=== PATIENT | female | born 1965 | race Caucasian/White ===

== ENCOUNTER → 2016-06-06 | Outpatient (CLI) | payer MEDICARE, MEDICAID | LOC: RAD 12:26 | PROVIDERS: ATTEND Physician Assistant | DX: M47.812 Spondylosis without myelopathy or radiculopathy, cervical region (principal) | CPT/HCPCS: 72125 ==

== ENCOUNTER 2017-03-27 09:06 | Emergency (ER) | payer MEDICARE, MEDICAID ==
[2017-03-27] MEDS ORDERED: MORPHINE SULFATE 10 MG/ML INJ IV ONE (10:45)
[2017-03-27] MEDS ORDERED: ONDANSETRON HCL INJ/PF 4 MG/2 ML SDV IV ONE (10:45)
--- NOTE | 2017-03-27 10:47 | ER Document Report ---
ED Medical Screen (RME) - General Chief Complaint: Headache >24 hrs old Stated Complaint: HEADACHE Time Seen by Provider: 03/27/17 10:45 Mode of Arrival: Ambulatory Notes: Patient complains of posterior headache and "trouble with my thought process". She states she has a history of Chiari malformation with decompression surgery 3 years ago. I did speak with radiology who requested an MRI be performed. TRAVEL OUTSIDE OF THE [place] IN LAST 30 DAYS: No - Related Data Allergies/Adverse Reactions: oxycodone [Oxycodone] Adverse Reaction (Mild, Verified 03/27/17 10:38) Past Medical History - Social History Frequency of alcohol use: None Drug Abuse: None - Past Medical History Cardiac Medical History: Reports: Hx Hypercholesterolemia, Hx Hypertension Neurological Medical History: Reports: Hx Seizures Renal/ Medical History: Denies: Hx Peritoneal Dialysis Psychiatric Medical History: Reports: Hx Depression Past Surgical History: Reports: Hx Hysterectomy, Hx Neurologic Surgery - Decompression of Chiari 1 malformation, Hx Orthopedic Surgery - right arthroscopy - Immunizations Hx Diphtheria, Pertussis, Tetanus Vaccination: No Physical Exam - Vital signs Vitals: Temp Pulse Resp BP Pulse Ox 97.5 F 70 17 168/100 H 99 03/27/17 09:12 03/27/17 09:12 03/27/17 09:12 03/27/17 09:12 03/27/17 09:12 Course - Vital Signs Vital signs: Temp Pulse Resp BP Pulse Ox 97.5 F 70 17 168/100 H 99 03/27/17 09:12 03/27/17 09:12 03/27/17 09:12 03/27/17 09:12 03/27/17 09:12
[2017-03-27 11:53] LABS: ABSOLUTE EOSINOPHILS # (AUTO) 0.1 10^3/uL (0.0-0.6); ABSOLUTE LYMPHOCYTES (AUTO) 1.4 10^3/uL (0.5-4.7); ABSOLUTE MONOCYTES (AUTO) 0.4 10^3/uL (0.1-1.4); ABSOLUTE NEUT (AUTO) 4.9 10^3/uL (1.7-8.2); BASOPHILS % (AUTO) 0.6 % (0-2); EOSINOPHILS % (AUTO) 1.1 % (0-6); HEMATOCRIT 44.3 % (36.0-47.0); HEMOGLOBIN 15.1 g/dL (12.0-15.5); LYMPHOCYTES % (AUTO) 20.3 % (13-45); MEAN CORPUSCULAR HEMOGLOBIN 32.4 pg (27.0-33.4); MEAN CORPUSCULAR HGB CONC 34.1 g/dL (32.0-36.0); MEAN CORPUSCULAR VOLUME 95 fl (80-97); MONOCYTES % (AUTO) 5.6 % (3-13); PLATELET COUNT 212 10^3/uL (150-450); RED BLOOD COUNT 4.67 10^6/uL (3.72-5.28); RED CELL DISTRIBUTION WIDTH 14.2 % (11.5-14.0); SEGMENTED NEUTROPHILS % (AUTO) 72.4 % (42-78); TOTAL CELLS COUNTED % (AUTO) 100 %; WHITE BLOOD COUNT 6.8 10^3/uL (4.0-10.5)
[2017-03-27 12:00] LABS: APPEARANCE,URINE CLEAR; BILIRUBIN,URINE NEGATIVE (NEGATIVE); COLOR,URINE YELLOW; GLUCOSE, URINE NEGATIVE (NEGATIVE); KETONES,URINE NEGATIVE (NEGATIVE); LEUKOCYTE ESTERASE,URINE NEGATIVE (NEGATIVE); NITRITE,URINE NEGATIVE (NEGATIVE); PROTEIN,URINE NEGATIVE (NEGATIVE); URINE SPECIFIC GRAVITY 1.021
[2017-03-27 12:05] LABS: ALANINE AMINOTRANSFERASE 27 U/L (9-52); ALBUMIN 4.6 g/dL (3.5-5.0); ALKALINE PHOSPHATASE 56 U/L (38-126); ANION GAP 8 (5-19); ASPARTATE AMINO TRANSFERASE 15 U/L (14-36); BILIRUBIN,DIRECT 0.2 mg/dL (0.0-0.4); BILIRUBIN,TOTAL 0.6 mg/dL (0.2-1.3); BLOOD UREA NITROGEN 14 mg/dL (7-20); CALCIUM 9.7 mg/dL (8.4-10.2); CARBON DIOXIDE 29 mmol/L (22-30); CHLORIDE 104 mmol/L (98-107); GLUCOSE 90 mg/dL (75-110); POTASSIUM 3.9 mmol/L (3.6-5.0); SODIUM 141.2 mmol/L (137-145); TOTAL PROTEIN 7.1 g/dL (6.3-8.2)
--- NOTE | 2017-03-27 14:31 | ER Document Report ---
ED Headache - General Chief Complaint: Headache >24 hrs old Stated Complaint: HEADACHE Time Seen by Provider: 03/27/17 10:45 Mode of Arrival: Ambulatory Notes: Patient states that she has a history of a Chiari malformation. Status post craniotomy approximately 5 years ago. Has been having increasing headache over the last 3 days. Located at the occiput. Denies any fever, chills, sweats. Denies any neurological symptoms. TRAVEL OUTSIDE OF THE [place] IN LAST 30 DAYS: No - HPI Patient complains to provider of: Headache, "Migraine" - Related Data Allergies/Adverse Reactions: oxycodone [Oxycodone] Adverse Reaction (Mild, Verified 03/27/17 10:38) Past Medical History - General Information source: Patient - Social History Smoking Status: Current Some Day Smoker Frequency of alcohol use: None Drug Abuse: None Family History: Reviewed & Not Pertinent - No thromboembolic disorders Patient has suicidal ideation: No Patient has homicidal ideation: No - Past Medical History Cardiac Medical History: Reports: Hx Hypercholesterolemia, Hx Hypertension Neurological Medical History: Reports: Hx Seizures Renal/ Medical History: Denies: Hx Peritoneal Dialysis Psychiatric Medical History: Reports: Hx Depression Past Surgical History: Reports: Hx Hysterectomy, Hx Neurologic Surgery - Decompression of Chiari 1 malformation, Hx Orthopedic Surgery - right arthroscopy - Immunizations Hx Diphtheria, Pertussis, Tetanus Vaccination: No Review of Systems - Review of Systems Constitutional: denies: Chills, Diaphoresis, Fever, Malaise, Weakness EENT: denies: Blurred vision, Double vision, Ear pain, Nose congestion, Nose discharge Cardiovascular: denies: Palpitations, Heart racing, Orthopnea, Dyspnea, Syncope Respiratory: denies: Cough, Hurts to breathe, Hemoptysis, Short of breath Gastrointestinal: denies: Abdominal pain, Diarrhea, Nausea, Vomiting Genitourinary: denies: Burning, Dysuria, Discharge, Hematuria Musculoskeletal: denies: Gout, Joint pain, Joint swelling, Muscle pain, Muscle stiffness, Neck pain Skin: denies: Change in color, Change in hair/nails, Dryness, Lesions, Lumps, Rash Hematologic/Lymphatic: denies: Anemia, Blood clots, Easy bleeding, Easy bruising Neurological/Psychological: Headaches. denies: Dementia, Depression, Anxiety, Weakness, Gait changes Physical Exam - Vital signs Vitals: Temp Pulse Resp BP Pulse Ox 97.5 F 70 17 168/100 H 99 03/27/17 09:12 03/27/17 09:12 03/27/17 09:12 03/27/17 09:12 03/27/17 09:12 Interpretation: Normal - General General appearance: Appears well, Alert - HEENT Head: Normocephalic, Atraumatic Eyes: Normal Pupils: PERRL - Respiratory Respiratory status: No respiratory distress Chest status: Nontender Breath sounds: Normal Chest palpation: Normal - Cardiovascular Rhythm: Regular Heart sounds: Normal auscultation Murmur: No - Abdominal Inspection: Normal Distension: No distension Bowel sounds: Normal Tenderness: Nontender Organomegaly: No organomegaly - Back Back: Normal, Nontender - Extremities General upper extremity: Normal inspection, Nontender, Normal color, Normal ROM , Normal temperature General lower extremity: Normal inspection, Nontender, Normal color, Normal ROM , Normal temperature, Normal weight bearing. No: Maco's sign - Neurological Neuro grossly intact: Yes Cognition: Normal Orientation: AAOx4 [place] Coma Scale Eye Opening: Spontaneous Trisha Coma Scale Verbal: Oriented Trisha Coma Scale Motor: Obeys Commands [place] Coma Scale Total: 15 Speech: Normal Motor strength normal: LUE, RUE, LLE, RLE Sensory: Normal - Psychological Associated symptoms: Normal affect, Normal mood - Skin Skin Temperature: Warm Skin Moisture: Dry Skin Color: Normal Course - Re-evaluation Re-evalutation: 03/27/17 16:26 Well-appearing female no acute distress. MRI unremarkable. N We will give her standard migraine treatment at this time. Patient is comfortable with this plan. Will DC at this time. - Vital Signs Vital signs: Temp Pulse Resp BP Pulse Ox 97.7 F 74 20 160/71 H 99 03/27/17 15:15 03/27/17 15:15 03/27/17 15:15 03/27/17 15:15 03/27/17 15:15 - Laboratory Result Diagrams: 03/27/17 11:28 03/27/17 11:28 Laboratory results interpreted by me: 03/27/17 03/27/17 11:05 11:28 RDW 14.2 H Urine Blood SMALL H Urine Urobilinogen 2.0 H Discharge - Discharge Clinical Impression: Chronic headaches Qualifiers: Headache type: unspecified Intractability: not intractable Qualified Code(s): R51 - Headache Disposition: HOME, SELF-CARE Instructions: Headache ([facility])
--- NOTE | 2017-03-27 15:40 | RADIOLOGY REPORT (SQ) ---
EXAM DESCRIPTION: MRI HEAD COMBO COMPLETED DATE/TIME: 03/27/2017 3:04 pm REASON FOR STUDY: hx chiari with surg COMPARISON: CT cervical spine 06/06/2016 MRI cervical spine 08/15/2015 MRI brain 05/26/2015, 08/03/2014 TECHNIQUE: Multiplanar imaging includes noncontrasted T1, T2, FLAIR, diffusion with ADC map and post gadolinium contrast T1 sequences. Images stored on PACS. CONTRAST TYPE AND DOSE: 20 mL Multihance. RENAL FUNCTION: Estimated GFR greater than 60 LIMITATIONS: None. FINDINGS: ANATOMY: Patient is post decompression of the posterior aspect foramen magnum for Chiari 1 malformation. There is ample CSF space around the cerebellar tonsils and medulla without evidence o f mass effect. A titanium plate is seen along the posterior aspect of the foramen magnum. No abnorm al masses or enhancement in the operative area. There is incidental finding of of empty sella, an anatomic variant, similar compared to 08/03/2014. CSF SPACES: Normal in size and contour. No hemorrhage. No hydrocephalus. CEREBRUM: Sulci and gyri normal in size and contour. Normal white matter signal on FLAIR imaging. No evidence of hemorrhage, mass, or extraaxial fluid collection. No abnormal enhancement post contrast. POSTERIOR FOSSA: No signal alteration. No hemorrhage. No edema, masses, or mass effect. Internal yodit tory canals, cerebellopontine angles, mastoids normal. No enhancing lesions. No abnormal enhancement post contrast. DIFFUSION IMAGING: Negative for acute or subacute infarction. ORBITS: No masses. Globes normal. PARANASAL SINUSES: No fluid levels. Mucosa normal. OTHER: No other significant finding. IMPRESSION: POST CHIARI 1 MALFORMATION DECOMPRESSION IN THE POSTERIOR FOSSA. OTHERWISE, NORMAL MRI OF THE BRAIN WITHOUT AND WITH INTRAVENOUS GADOLINIUM CONTRAST. EVIDENCE OF ACUTE STROKE: NO. TECHNICAL DOCUMENTATION: JOB ID: [id number] [employer]- All Rights Reserved
[2017-03-27] MEDS ORDERED: KETOROLAC TROMETHAMINE INJ/PF 30 MG/1 ML SDV IV ONE (16:23)
[2017-03-27] MEDS ORDERED: DIPHENHYDRAMINE HCL 50 MG/ML VIAL IV ONE (16:23)
[2017-03-27] MEDS ORDERED: PROCHLORPERAZINE EDISYLATE INJ 10 MG/2 ML VIAL IV ONE (16:24)
[2017-03-27 16:48] VITALS: BP 153/92
== END 2017-03-27 16:49 | disposition home or self-care (01) ==
LOC: ER 09:06
DX: R51 Headache (principal); G93.5 Compression of brain; I10 Essential (primary) hypertension; Z98.890 Other specified postprocedural states
CPT/HCPCS: 99284; 96374; 96375; 36415; 85025; 80053; 81001; 70553; J2270; J2405

== ENCOUNTER 2017-04-19 07:52 | Emergency (ER) | payer MEDICARE, MEDICAID ==
[2017-04-19] MEDS ORDERED: NORMAL SALINE 1000 ML 1,000 ML IV ONE (08:36)
[2017-04-19] MEDS ORDERED: HYDROMORPHONE HCL INJ/PF 2 MG/ML AMPULE IV ONE (08:36)
[2017-04-19] MEDS ORDERED: DIPHENHYDRAMINE HCL 50 MG/ML VIAL IV ONE (08:36)
--- NOTE | 2017-04-19 08:36 | ER Document Report ---
ED Headache - General Chief Complaint: Headache Stated Complaint: HEADACHE Time Seen by Provider: 04/19/17 08:23 Mode of Arrival: Ambulatory Information source: Patient Notes: Patient is a 52-year-old female with a history of a Chiari I malformation surgically decompressed 5 years ago who presents to the ER via EMS today for headache 1 week that feels like a pressure and elevated blood pressure readings over the past 2 weeks. Patient states that she takes her hydrochlorothiazide as prescribed but it does not seem to bring down her blood pressure. On arrival and in the ambulance her blood pressure is tripler triple , 190/120. She states that over a week ago it was 190/130 at the doctor's office. Patient still is only on one blood pressure medication. Patient denies any blurred vision, numbness or tingling anywhere, weakness on one side or the other. She does state that she overall feels weak. She complained of chest pain on the ambulance but did not complain of any chest pain to me and denied it here in the emergency department. Patient has no history of heart attack or stroke. Patient admits to some nausea but no shortness of breath. TRAVEL OUTSIDE OF THE [place] IN LAST 30 DAYS: No - Related Data Allergies/Adverse Reactions: oxycodone [Oxycodone] Adverse Reaction (Mild, Verified 03/27/17 10:38) Past Medical History - General Information source: Patient - Social History Smoking Status: Unknown if Ever Smoked Chew tobacco use (# tins/day): No Drug Abuse: None Family History: Reviewed & Not Pertinent - No thromboembolic disorders Patient has suicidal ideation: No Patient has homicidal ideation: No - Past Medical History Cardiac Medical History: Reports: Hx Hypercholesterolemia, Hx Hypertension Neurological Medical History: Reports: Hx Seizures Renal/ Medical History: Denies: Hx Peritoneal Dialysis Psychiatric Medical History: Reports: Hx Depression Past Surgical History: Reports: Hx Hysterectomy, Hx Neurologic Surgery - Decompression of Chiari 1 malformation, Hx Orthopedic Surgery - right arthroscopy - Immunizations Hx Diphtheria, Pertussis, Tetanus Vaccination: No Review of Systems - Review of Systems Constitutional: See HPI EENT: No symptoms reported Cardiovascular: See HPI Respiratory: No symptoms reported Gastrointestinal: No symptoms reported Genitourinary: No symptoms reported Female Genitourinary: No symptoms reported Musculoskeletal: No symptoms reported Skin: No symptoms reported Hematologic/Lymphatic: No symptoms reported Neurological/Psychological: See HPI Physical Exam - Vital signs Vitals: Temp Pulse Resp BP Pulse Ox 97.8 F 80 16 168/103 H 98 04/19/17 07:52 04/19/17 07:52 04/19/17 07:52 04/19/17 07:52 04/19/17 07:52 - Notes Notes: PHYSICAL EXAMINATION: GENERAL: Appears uncomfortable, lying in a dark room, but in no acute distress. HEAD: Atraumatic, normocephalic. EYES: Pupils equal round and reactive to light, extraocular movements intact, sclera anicteric, conjunctiva are normal. ENT: ear canals without erythema or foreign body, TMs pearly proctor with good bony landmarks, nares patent, oropharynx clear without exudates. Moist mucous membranes. NECK: Normal range of motion, supple without lymphadenopathy LUNGS: CTAB and equal. No wheezes rales or rhonchi. HEART: Regular rate and rhythm without murmurs ABDOMEN: Soft, no tenderness. No guarding, no rebound BACK: no vertebral tenderness, normal ROM GI/: no CVA tenderness EXTREMITIES: Normal range of motion, no pitting edema. No cyanosis. NEUROLOGICAL: Cranial nerves grossly intact. Normal sensory/motor exams. Good and equal strength bilaterally, Kernig and Brudzinski's signs negative, Romberg' s test normal, normal heel to hamilton testing PSYCH: Normal mood, normal affect. SKIN: Warm, Dry, normal turgor, no rashes or lesions noted Course - Re-evaluation Re-evalutation: 04/19/17 11:24 Lab work is unremarkable today including normal cardiac enzymes, EKG reveals a normal sinus rhythm without evidence of ischemia or abnormality, CT of the head and chest x-ray negative for any acute pathology. Patient's blood pressure is now down to 148/89 after clonidine. I do believe this patient has a recent history of not being able to get her blood pressure control that she likely needs another blood pressure medication added to her daily regimen with hydrochlorothiazide. Patient will be started on amlodipine today and is to follow-up with her primary care provider. Patient's headache is much better. She still denies any chest pain to me. - Vital Signs Vital signs: Temp Pulse Resp BP Pulse Ox 97.8 F 80 18 165/92 H 98 04/19/17 07:52 04/19/17 07:52 04/19/17 10:01 04/19/17 10:01 04/19/17 10:01 - Laboratory Result Diagrams: 04/19/17 08:11 04/19/17 08:11 Laboratory results interpreted by me: 04/19/17 08:11 Carbon Dioxide 32 H Discharge - Discharge Clinical Impression: Headache Qualifiers: Headache type: unspecified Headache chronicity pattern: acute headache Intractability: not intractable Qualified Code(s): R51 - Headache HTN (hypertension) Qualifiers: Hypertension type: unspecified Qualified Code(s): I10 - Essential (primary) hypertension Condition: Stable Disposition: HOME, SELF-CARE Additional Instructions: Return immediately for any new or worsening symptoms. Follow up with primary care provider, call tomorrow to make followup appointment. Prescriptions: Amlodipine Besylate [Norvasc 5 mg Tablet] 5 mg PO DAILY #30 tablet Referrals: [facility] [Provider Group] - Follow up as needed
[2017-04-19 08:40] LABS: ABSOLUTE EOSINOPHILS # (AUTO) 0.1 10^3/uL (0.0-0.6); ABSOLUTE LYMPHOCYTES (AUTO) 2.2 10^3/uL (0.5-4.7); ABSOLUTE MONOCYTES (AUTO) 0.6 10^3/uL (0.1-1.4); ABSOLUTE NEUT (AUTO) 4.3 10^3/uL (1.7-8.2); BASOPHILS % (AUTO) 0.5 % (0-2); EOSINOPHILS % (AUTO) 1.4 % (0-6); HEMATOCRIT 42.5 % (36.0-47.0); HEMOGLOBIN 14.9 g/dL (12.0-15.5); LYMPHOCYTES % (AUTO) 30.3 % (13-45); MEAN CORPUSCULAR VOLUME 94 fl (80-97); MONOCYTES % (AUTO) 8.3 % (3-13); PLATELET COUNT 204 10^3/uL (150-450); RED BLOOD COUNT 4.51 10^6/uL (3.72-5.28); SEGMENTED NEUTROPHILS % (AUTO) 59.5 % (42-78); TOTAL CELLS COUNTED % (AUTO) 100 %; WHITE BLOOD COUNT 7.2 10^3/uL (4.0-10.5)
[2017-04-19 08:56] LABS: ALANINE AMINOTRANSFERASE 20 U/L (9-52); ALBUMIN 4.1 g/dL (3.5-5.0); ALKALINE PHOSPHATASE 59 U/L (38-126); ANION GAP 11 (5-19); ASPARTATE AMINO TRANSFERASE 15 U/L (14-36); BILIRUBIN,DIRECT 0.3 mg/dL (0.0-0.4); BILIRUBIN,TOTAL 0.3 mg/dL (0.2-1.3); BLOOD UREA NITROGEN 15 mg/dL (7-20); CARBON DIOXIDE 32 mmol/L (22-30); CHLORIDE 98 mmol/L (98-107); CREATINE KINASE 39 U/L (30-135); GLUCOSE 83 mg/dL (75-110); POTASSIUM 3.6 mmol/L (3.6-5.0); SODIUM 141.4 mmol/L (137-145); TOTAL PROTEIN 6.8 g/dL (6.3-8.2)
--- NOTE | 2017-04-19 09:08 | RADIOLOGY REPORT (SQ) ---
EXAM DESCRIPTION: CT HEAD WITHOUT COMPLETED DATE/TIME: 04/19/2017 8:38 am REASON FOR STUDY: headache, htn, Chiari malformation hx COMPARISON: MRI of the brain 03/27/2017. TECHNIQUE: Axial images acquired through the brain without intravenous contrast. Images reviewed wi th bone, brain and subdural windows. Images stored on PACS. All CT scanners at this facility use dose modulation, iterative reconstruction, and/or weight based d osing when appropriate to reduce radiation dose to as low as reasonably achievable (ALARA). [facility]: Dose Right [facility]: CareDose [facility]: Dose Right [facility]: Teradose 4D [facility]: Smart Video Blocks RADIATION DOSE: CT Rad equipment meets quality standard of care and radiation dose reduction techniq ues were employed. CTDIvol: 64.6 mGy. DLP: 1034 mGy-cm. mGy. LIMITATIONS: None. FINDINGS: VENTRICLES: : Midline and unchanged. CEREBRUM: Changes of an empty sella. No abnormal areas of increased or decreased attenuation. No in tracranial hemorrhage. No subdural collection. CEREBELLUM: No masses. No hemorrhage. No alteration of density. No evidence for acute infarction. EXTRAAXIAL SPACES: No fluid collections. No masses. ORBITS AND GLOBE: No intra- or extraconal masses. Normal contour of globe without masses. CALVARIUM: Suboccipital craniotomy and postsurgical change for posterior fossa decompression. PARANASAL SINUSES: No fluid or mucosal thickening. SOFT TISSUES: No mass or hematoma. OTHER: No other significant finding. IMPRESSION: CHANGES OF PREVIOUS SUBOCCIPITAL CRANIOTOMY FOR POSTERIOR FOSSA DECOMPRESSION. EMPTY SE LLA. NO SIGNIFICANT INTERVAL CHANGE. EVIDENCE OF ACUTE STROKE: NO. COMMENT: Quality ID # [id number]: Final reports with documentation of one or more dose reduction techniques (e.g., Automated exposure control, adjustment of the mA and/or kV according to patient size, use of iterative reconstruction technique) TECHNICAL DOCUMENTATION: JOB ID: [id number] [employer]- All Rights Reserved
--- NOTE | 2017-04-19 09:15 | RADIOLOGY REPORT (SQ) ---
EXAM DESCRIPTION: CHEST SINGLE VIEW COMPLETED DATE/TIME: 04/19/2017 8:43 am REASON FOR STUDY: chest discomfort COMPARISON: CT of chest with contrast 09/09/2013. EXAM PARAMETERS: NUMBER OF VIEWS: One view. TECHNIQUE: Single frontal radiographic view of the chest acquired. RADIATION DOSE: NA LIMITATIONS: None. FINDINGS: LUNGS AND PLEURA: No acute infiltrates or effusions. Previously described 1.3 cm right lo wer lobe pulmonary nodule and 0.6 cm pulmonary nodule left upper lobe seen on prior CT 09/09/2013 not i dentified. MEDIASTINUM AND HILAR STRUCTURES: No masses. Contour normal. HEART AND VASCULAR STRUCTURES: The heart is normal with normal pulmonary vasculature. BONES: Dorsal spondylosis. HARDWARE: None in the chest. OTHER: No other significant finding. IMPRESSION: NO ACUTE DISEASE. TECHNICAL DOCUMENTATION: JOB ID: [id number] [employer]- All Rights Reserved
[2017-04-19] MEDS ORDERED: CLONIDINE HCL 0.1 MG TABLET PO ONE (09:58)
--- NOTE | 2017-04-19 11:05 | EKG REPORT ---
SEVERITY:- NORMAL ECG - SINUS RHYTHM : Confirmed by: Mariely Vásquez 19-Apr-2017 11:04:19
[2017-04-19 11:43] VITALS: BP 148/89
== END 2017-04-19 11:50 | disposition home or self-care (01) ==
LOC: ER 07:52
DX: R51 Headache (principal); I10 Essential (primary) hypertension; G93.5 Compression of brain; R03.0 Elevated blood-pressure reading, without diagnosis of hypertension; R07.9 Chest pain, unspecified; R11.0 Nausea; Z98.890 Other specified postprocedural states
CPT/HCPCS: 93005; 99284; 96361; 96374; 96375; 36415; 82553; 82550; 83690; 85025; 80053; 84484; 71045; 70450; 93010; A9270; J1200; J1170; J7030

== ENCOUNTER 2017-10-29 17:29 | Emergency (ER) | payer MEDICARE, MEDICAID ==
--- NOTE | 2017-10-29 18:21 | RADIOLOGY REPORT (SQ) ---
EXAM DESCRIPTION: CHEST 2 VIEWS COMPLETED DATE/TIME: 10/29/2017 6:12 pm REASON FOR STUDY: SOB COMPARISON: 04/19/2017. EXAM PARAMETERS: NUMBER OF VIEWS: two views TECHNIQUE: Digital Frontal and Lateral radiographic views of the chest acquired. RADIATION DOSE: NA LIMITATIONS: none FINDINGS: LUNGS AND PLEURA: No opacities, masses or pneumothorax. No pleural effusion. MEDIASTINUM AND HILAR STRUCTURES: No masses or contour abnormalities. HEART AND VASCULAR STRUCTURES: Heart normal size. No evidence for failure. BONES: No acute findings. HARDWARE: None in the chest. OTHER: No other significant finding. IMPRESSION: NO ACUTE RADIOGRAPHIC FINDING IN THE CHEST. TECHNICAL DOCUMENTATION: JOB ID: [id number] [employer]- All Rights Reserved Reading location - IP/workstation name: [email or web address]
[2017-10-29 18:31] LABS: ABSOLUTE BASOPHILS # (AUTO) 0.1 10^3/uL (0.0-0.2); ABSOLUTE LYMPHOCYTES (AUTO) 2.5 10^3/uL (0.5-4.7); ABSOLUTE MONOCYTES (AUTO) 0.9 10^3/uL (0.1-1.4); ABSOLUTE NEUT (AUTO) 8.4 10^3/uL (1.7-8.2); BASOPHILS % (AUTO) 0.6 % (0-2); EOSINOPHILS % (AUTO) 0.4 % (0-6); HEMOGLOBIN 15.5 g/dL (12.0-15.5); LYMPHOCYTES % (AUTO) 20.7 % (13-45); MEAN CORPUSCULAR HEMOGLOBIN 33.1 pg (27.0-33.4); MEAN CORPUSCULAR HGB CONC 34.5 g/dL (32.0-36.0); MEAN CORPUSCULAR VOLUME 96 fl (80-97); MONOCYTES % (AUTO) 7.4 % (3-13); PLATELET COUNT 230 10^3/uL (150-450); RED BLOOD COUNT 4.69 10^6/uL (3.72-5.28); RED CELL DISTRIBUTION WIDTH 12.9 % (11.5-14.0); SEGMENTED NEUTROPHILS % (AUTO) 70.9 % (42-78); TOTAL CELLS COUNTED % (AUTO) 100 %; WHITE BLOOD COUNT 11.9 10^3/uL (4.0-10.5)
[2017-10-29 18:49] LABS: ALANINE AMINOTRANSFERASE 18 U/L (9-52); ALBUMIN 4.1 g/dL (3.5-5.0); ALKALINE PHOSPHATASE 81 U/L (38-126); ANION GAP 14 (5-19); ASPARTATE AMINO TRANSFERASE 16 U/L (14-36); BILIRUBIN,DIRECT 0.3 mg/dL (0.0-0.4); BILIRUBIN,TOTAL 0.3 mg/dL (0.2-1.3); BLOOD UREA NITROGEN 18 mg/dL (7-20); CALCIUM 9.7 mg/dL (8.4-10.2); CARBON DIOXIDE 24 mmol/L (22-30); CHLORIDE 106 mmol/L (98-107); CREATINE KINASE 62 U/L (30-135); GLUCOSE 106 mg/dL (75-110); POTASSIUM 3.6 mmol/L (3.6-5.0); SODIUM 143.5 mmol/L (137-145); TOTAL PROTEIN 7.1 g/dL (6.3-8.2)
[2017-10-29 19:01] LABS: CREATINE KINASE MB 0.49 ng/mL (<4.55)
[2017-10-29 19:02] LABS: TROPONIN I < 0.012 ng/mL
[2017-10-29] MEDS ORDERED: NITROGLYCERIN 2% OINTMENT 1 GM PACKET TP ONE (19:13)
[2017-10-29] MEDS ORDERED: ASPIRIN 325 MG TABLET PO ONE (19:13)
[2017-10-29] MEDS ORDERED: MORPHINE SULFATE 10 MG/ML INJ IV ONE (19:14)
[2017-10-29] MEDS ORDERED: MORPHINE SULFATE 10 MG/ML INJ IM ONE (19:14)
--- NOTE | 2017-10-29 19:21 | ER Document Report ---
ED General - General Chief Complaint: Shortness Of Breath Stated Complaint: DIFFICULTY BREATHING Time Seen by Provider: 10/29/17 19:03 TRAVEL OUTSIDE OF THE [place] IN LAST 30 DAYS: No - HPI Notes: 52-year-old female who presents with chest pain. Patient was outside after assessing and cleaning her friend's house when she describes relatively rapid onset of chest discomfort and dyspnea. Primarily dyspnea initially, later developed some chest tightness and pressure. Sometimes slightly pleuritic. No lower extremity pain or swelling. No personal or family history of venous thrombolic disease. No known history of CAD. Gradual onset, nonradiating. No other modifying factors, no other associated symptoms, no other provocative or palliative factors. - Related Data Allergies/Adverse Reactions: oxycodone [Oxycodone] Adverse Reaction (Mild, Verified 03/27/17 10:38) Past Medical History - Social History Smoking Status: Current Every Day Smoker Chew tobacco use (# tins/day): No Frequency of alcohol use: None Drug Abuse: None Family History: Reviewed & Not Pertinent - No thromboembolic disorders Patient has suicidal ideation: No Patient has homicidal ideation: No - Past Medical History Cardiac Medical History: Reports: Hx Hypercholesterolemia, Hx Hypertension Neurological Medical History: Reports: Hx Seizures Renal/ Medical History: Denies: Hx Peritoneal Dialysis Psychiatric Medical History: Reports: Hx Depression Past Surgical History: Reports: Hx Hysterectomy, Hx Neurologic Surgery - Decompression of Chiari 1 malformation, Hx Orthopedic Surgery - right arthroscopy - Immunizations Hx Diphtheria, Pertussis, Tetanus Vaccination: No Review of Systems - Review of Systems Notes: Review of systems as in the history of present illness, otherwise negative x 10 systems. Physical Exam - Vital signs Vitals: Temp 98.0 F 10/29/17 17:42 - Notes Notes: General: Well developed . HEENT: Normocephalic, atraumatic. Pupils equal round reactive to light. No JVD. Chest: No trauma. Respiratory: Good air exchange, normal excursion. Cardiac: Regular rhythm. No murmurs or gallops. Abdomen: Soft, benign. Nondistended. Nontender. Back: No asymmetry or gross abnormality. Motor: Grossly normal power and tone. Neurologic: Alert, nonfocal. Cranial nerves II-12 are intact. Sensation intact. Vascular: Well perfused. Normal peripheral pulses. Skin: No petechiae or purpura. Course - Re-evaluation Re-evalutation: 10/29/17 19:20 2-year-old female the after mentioned symptoms. Consider underlying CAD, pulmonary embolism, pneumonia or other etiology. May be related to reflux or atypical chest pain. Plan proceed with basic labs, aspirin, morphine, nitrates , x-ray and reassess. 12 Lead ECG Analysis A 12 lead ECG is obtained and shows a sinus rhythm, normal QRS, normal QTC. There are nonspecific ST-T changes, no evidence of acute ischemic changes. 10/29/17 22:03 Labs reviewed, CBC normal, chemistries normal. Delta troponin 2 is negative. 12 Lead ECG Analysis A 12 lead ECG is obtained and shows a sinus rhythm, normal QRS, normal QTC. There are nonspecific ST-T changes, no evidence of acute ischemic changes. D-dimer is negative, effectively excluding pulmonary embolism is low risk patient. Chest x-ray is unremarkable. Patient had complete resolution of symptoms. At this point, I think she is lower likelihood for ACS. She has a negative delta troponin is pain-free. She is discharged home to follow close with primary care physician, return if worsening. - Vital Signs Vital signs: Temp Pulse Resp BP Pulse Ox 98.7 F 17 173/97 H 99 10/29/17 18:01 10/29/17 19:01 10/29/17 19:01 10/29/17 19:01 - Laboratory Result Diagrams: 10/29/17 18:00 10/29/17 18:00 Laboratory results interpreted by me: 10/29/17 18:00 WBC 11.9 H Absolute Neutrophils 8.4 H Discharge - Discharge Clinical Impression: Chest pain Qualifiers: Chest pain type: unspecified Qualified Code(s): R07.9 - Chest pain, unspecified Disposition: HOME, SELF-CARE Instructions: Chest Pain of Unclear Cause ([facility]) Additional Instructions: See her primary care doctor tomorrow morning. You must be compliant with her blood pressure medicine. Referrals: MIKIE FRANK MD [Primary Care Provider] - Follow up as needed
--- NOTE | 2017-10-29 19:54 | EKG REPORT ---
SEVERITY:- BORDERLINE ECG - SINUS TACHYCARDIA BORDERLINE T ABNORMALITIES, ANT-LAT LEADS : Confirmed by: Toni Stewart MD 29-Oct-2017 19:53:53
[2017-10-29 22:07] VITALS: BP 134/74
== END 2017-10-29 22:14 | disposition home or self-care (01) ==
LOC: ER 17:29
DX: R07.89 Other chest pain (principal); R07.81 Pleurodynia; R06.02 Shortness of breath; F17.200 Nicotine dependence, unspecified, uncomplicated; I10 Essential (primary) hypertension
CPT/HCPCS: 93005; 99285; 96374; 36415; 82553; 82550; 85025; 80053; 84484; 85379; 71046; 93010; A9270 ×2; J2270

== ENCOUNTER 2017-11-05 14:31 | Observation (INO) | payer MEDICARE, MEDICAID ==
--- NOTE | 2017-11-05 15:55 | ER Document Report ---
ED Medical Screen (RME) - General Chief Complaint: Chest Pain Stated Complaint: CHEST PAIN, BLOOD PRESSURE ISSUES Time Seen by Provider: 11/05/17 15:54 Notes: Patient is a 52-year-old female that presents to the emergency department for chief complaint of chest pain and shortness of breath. ROS: GENERAL: Denies fever or chills CV: Positive for chest pain PHYSICAL EXAMINATION: Vital signs reviewed. GENERAL: Appears uncomfortable, no acute distress, well-developed. HEAD: Atraumatic, normocephalic. EYES: Pupils equal round extraocular movements intact, conjunctiva are normal. ENT: Nares patent NECK: Normal range of motion CV: Heart regular rate and rhythm LUNGS: No respiratory distress Musculoskeletal: Normal range of motion NEUROLOGICAL: Normal speech PSYCH: Normal mood, normal affect. MDM: Patient seen and examined for rapid initial assessment. Vital signs reviewed. A comprehensive ED assessment and evaluation of the patient, analysis of test results and completion of the medical decision making process will be conducted by additional ED providers. *Note is created using voice recognition software and may contain spelling, syntax or grammatical errors. TRAVEL OUTSIDE OF THE [place] IN LAST 30 DAYS: No - Related Data Allergies/Adverse Reactions: codeine Allergy (Verified 11/05/17 15:57) oxycodone [Oxycodone] Adverse Reaction (Mild, Verified 11/05/17 14:32) Past Medical History - Past Medical History Cardiac Medical History: Reports: Hx Hypercholesterolemia, Hx Hypertension Neurological Medical History: Reports: Hx Seizures Renal/ Medical History: Denies: Hx Peritoneal Dialysis Psychiatric Medical History: Reports: Hx Depression Past Surgical History: Reports: Hx Hysterectomy, Hx Neurologic Surgery - Decompression of Chiari 1 malformation, Hx Orthopedic Surgery - right arthroscopy - Immunizations Hx Diphtheria, Pertussis, Tetanus Vaccination: No Doctor's Discharge - Discharge Referrals: MIKIE FRANK MD [Primary Care Provider] - Follow up as needed
[2017-11-05] MEDS ORDERED: ASPIRIN 81 MG TABLET, CHEWABLE PO ONE (16:00)
[2017-11-05 16:35] LABS: ABSOLUTE EOSINOPHILS # (AUTO) 0.1 10^3/uL (0.0-0.6); ABSOLUTE LYMPHOCYTES (AUTO) 2.3 10^3/uL (0.5-4.7); ABSOLUTE MONOCYTES (AUTO) 0.5 10^3/uL (0.1-1.4); ABSOLUTE NEUT (AUTO) 6.6 10^3/uL (1.7-8.2); BASOPHILS % (AUTO) 0.5 % (0-2); EOSINOPHILS % (AUTO) 0.9 % (0-6); HEMATOCRIT 45.3 % (36.0-47.0); HEMOGLOBIN 15.6 g/dL (12.0-15.5); LYMPHOCYTES % (AUTO) 24.5 % (13-45); MEAN CORPUSCULAR HEMOGLOBIN 33.3 pg (27.0-33.4); MEAN CORPUSCULAR HGB CONC 34.5 g/dL (32.0-36.0); MEAN CORPUSCULAR VOLUME 97 fl (80-97); MONOCYTES % (AUTO) 5.6 % (3-13); PLATELET COUNT 242 10^3/uL (150-450); RED BLOOD COUNT 4.68 10^6/uL (3.72-5.28); RED CELL DISTRIBUTION WIDTH 12.8 % (11.5-14.0); SEGMENTED NEUTROPHILS % (AUTO) 68.5 % (42-78); TOTAL CELLS COUNTED % (AUTO) 100 %; WHITE BLOOD COUNT 9.6 10^3/uL (4.0-10.5)
--- NOTE | 2017-11-05 16:43 | RADIOLOGY REPORT (SQ) ---
EXAM DESCRIPTION: CHEST SINGLE VIEW COMPLETED DATE/TIME: 11/05/2017 4:31 pm REASON FOR STUDY: CHEST PAIN COMPARISON: Chest films 10/29/2017, 04/19/2017 EXAM PARAMETERS: NUMBER OF VIEWS: One view. TECHNIQUE: Single frontal radiographic view of the chest acquired. RADIATION DOSE: NA LIMITATIONS: None. FINDINGS: LUNGS AND PLEURA: No opacities, masses or pneumothorax. No pleural effusion. MEDIASTINUM AND HILAR STRUCTURES: No masses. Contour normal. HEART AND VASCULAR STRUCTURES: Heart normal in size. Normal vasculature. BONES: No acute findings. HARDWARE: None in the chest. OTHER: No other significant finding. IMPRESSION: NO ACUTE RADIOGRAPHIC FINDING IN THE CHEST. TECHNICAL DOCUMENTATION: JOB ID: [id number] [employer]- All Rights Reserved Reading location - IP/workstation name: [email or web address]
[2017-11-05 16:50] LABS: ALANINE AMINOTRANSFERASE 15 U/L (9-52); ALBUMIN 4.1 g/dL (3.5-5.0); ALKALINE PHOSPHATASE 68 U/L (38-126); ANION GAP 9 (5-19); ASPARTATE AMINO TRANSFERASE 19 U/L (14-36); BILIRUBIN,DIRECT 0.3 mg/dL (0.0-0.4); BILIRUBIN,TOTAL 0.4 mg/dL (0.2-1.3); BLOOD UREA NITROGEN 21 mg/dL (7-20); CALCIUM 9.5 mg/dL (8.4-10.2); CARBON DIOXIDE 26 mmol/L (22-30); CHLORIDE 109 mmol/L (98-107); GLUCOSE 129 mg/dL (75-110); POTASSIUM 3.9 mmol/L (3.6-5.0); SODIUM 143.8 mmol/L (137-145)
[2017-11-05] MEDS: NITROGLYCERIN 0.4 MG/TAB 25 TAB/BOTTLE SL PRN ×2 (17:22→18:15)
[2017-11-05] MEDS ORDERED: NITROGLYCERIN 2% OINTMENT 1 GM PACKET TP ONE (18:46)
[2017-11-05] MEDS ORDERED: ONDANSETRON HCL INJ/PF 4 MG/2 ML SDV IV ONE (18:47)
[2017-11-05] MEDS ORDERED: ACETAMINOPHEN 325 MG TABLET PO ONE (18:47)
[2017-11-05] MEDS ORDERED: MORPHINE SULFATE 10 MG/ML INJ IV ONE (18:48)
--- NOTE | 2017-11-05 19:24 | EKG REPORT ---
SEVERITY:- BORDERLINE ECG - SINUS TACHYCARDIA BORDERLINE T ABNORMALITIES, ANTERIOR LEADS : Confirmed by: Toni Stewart MD 05-Nov-2017 19:23:29
--- NOTE | 2017-11-05 20:04 | RADIOLOGY REPORT (SQ) ---
EXAM DESCRIPTION: CTA CHEST COMPLETED DATE/TIME: 11/05/2017 7:37 pm REASON FOR STUDY: chest pain, uncontrolled BP COMPARISON: 09/09/2013 TECHNIQUE: CT scan of the chest performed using helical scanning technique with dynamic intravenous contrast injection. Images reviewed with lung, soft tissue and bone windows. Reconstructed coronal and sagittal MPR images reviewed. Additional 3 dimensional post-processing performed to develop Maximal Intensity Projection images (AL P). All images stored on PACS. All CT scanners at this facility use dose modulation, iterative reconstruction, and/or weight based d osing when appropriate to reduce radiation dose to as low as reasonably achievable (ALARA). [facility]: Dose Right [facility]: CareDose [facility]: Dose Right [facility]: Teradose 4D [facility]: [employer] CONTRAST TYPE AND DOSE: contrast/concentration: Isovue 350.00 mg/ml; Total Contrast Delivered: 75.0 ml; Total Saline Delivered: 75.0 ml Contrast bolus adequate for pulmonary arteries and aorta. RENAL FUNCTION: BUN 21 creatinine 0.8 RADIATION DOSE: CT Rad equipment meets quality standard of care and radiation dose reduction techniq ues were employed. CTDIvol: 22.0 - 28.3 mGy. DLP: 2710 mGy-cm. . LIMITATIONS: None. FINDINGS: LUNGS AND PLEURA: Stable nodule in the medial right lung base. No infiltrate or effusion. AORTA AND GREAT VESSELS: No aneurysm. Contrast bolus not optimized for the aorta. HEART: No pericardial effusion. No significant coronary artery calcifications. PULMONARY ARTERIES: No emboli visualized in the main pulmonary arteries or the segmental branches. HILAR AND MEDIASTINAL STRUCTURES: No identified masses or abnormal nodes. HARDWARE: None in the chest. UPPER ABDOMEN: See separate report of the CT of the abdomen. THYROID AND OTHER SOFT TISSUES: No masses. No adenopathy. BONES: No acute or significant finding. 3D MIPS: Confirm above findings. OTHER: No other significant finding. IMPRESSION: No evidence of pulmonary emboli. Normal aorta. Stable right pulmonary nodule. COMMENT: Quality ID # [id number]: Final reports with documentation of one or more dose reduction techniques (e.g., Automated exposure control, adjustment of the mA and/or kV according to patient size, use of iterative reconstruction technique) TECHNICAL DOCUMENTATION: JOB ID: [id number] [employer]- All Rights Reserved Reading location - IP/workstation name: [email or web address]
--- NOTE | 2017-11-05 20:15 | RADIOLOGY REPORT (SQ) ---
EXAM DESCRIPTION: CTA ABDOMEN/PELVIS W WO COMPLETED DATE/TIME: 11/05/2017 7:37 pm REASON FOR STUDY: chest pain, uncontrolled BP COMPARISON: None. TECHNIQUE: CT scan of the abdominal aorta extending to the iliac bifurcation performed with intraven ous contrast using helical scanning technique with dynamic intravenous contrast injection. Images rev iewed with lung, soft tissue, and bone windows. Reconstructed coronal and sagittal MPR images reviewe d. All images stored on PACS. Advanced 3D imaging as volume rendering, MIPS, SSD performed? yes All CT scanners at this facility use dose modulation, iterative reconstruction, and/or weight based d osing when appropriate to reduce radiation dose to as low as reasonably achievable (ALARA). [facility]: Dose Right [facility]: CareDose [facility]: Dose Right [facility]: Teradose 4D [facility]: [employer] CONTRAST TYPE AND DOSE: 75 mL Omnipaque 350- low osmolar. RENAL FUNCTION: BUN 21 creatinine 0.8 LIMITATIONS: None. FINDINGS: AORTA AND VESSELS: No aneurysm. No dissection. Renal arteries, SMA, celiac without stenosi s. LUNG BASES: See separate report for CT of the chest. LIVER: Normal size. No masses or dilated ducts. SPLEEN: Normal size. No focal lesions. PANCREAS: No masses. No significant calcifications. No adjacent inflammation or peripancreatic fluid collections. Pancreatic duct not dilated. GALLBLADDER: No identified stones by CT criteria. No inflammatory changes to suggest cholecystitis. ADRENAL GLANDS: No significant masses or asymmetry. RIGHT KIDNEY AND URETER: No mass, calculi or urinary tract obstruction. LEFT KIDNEY AND URETER: No mass, calculi or urinary tract obstruction. RETROPERITONEUM: No retroperitoneal adenopathy, hemorrhage or masses. BOWEL AND PERITONEAL CAVITY: No masses or inflammatory changes. No free fluid or peritoneal masses. APPENDIX: Not identified. ABDOMINAL WALL: No masses. No hernias. BONY STRUCTURES: No significant or acute findings. 3-D IMAGING: Confirms the above findings. OTHER: No other significant finding. IMPRESSION: NO ABDOMINAL AORTIC ANEURYSM, DISSECTION OR SIGNIFICANT STENOSIS. NO SIGNIFICANT FINDING S IN THE ABDOMEN. TECHNICAL DOCUMENTATION: JOB ID: [id number] Quality ID # [id number]: Final reports with documentation of one or more dose reduction techniques (e.g., Au tomated exposure control, adjustment of the mA and/or kV according to patient size, use of iterative reconstruction technique) 2010 [employer]- All Rights Reserved Reading location - IP/workstation name: [email or web address]
--- NOTE | 2017-11-05 21:55 | ER Document Report ---
ED General - General Chief Complaint: Chest Pain Stated Complaint: CHEST PAIN, BLOOD PRESSURE ISSUES Time Seen by Provider: 11/05/17 15:54 Mode of Arrival: Ambulatory Information source: Patient Notes: This is a 52-year-old female with a history of hypertension that presents to the emergency room with chest pain which is sharp in nature stabbing to the back. Her blood pressure was significantly elevated early this morning (200/119 ). She was noted to be hypertensive in triage. She denies any significant shortness of breath. She has had a recent ER evaluation for similar symptoms. TRAVEL OUTSIDE OF THE [place] IN LAST 30 DAYS: No - HPI Onset: This morning Onset/Duration: Sudden Quality of pain: Sharp Severity: Moderate Pain Level: 4 Associated symptoms: Chest pain. denies: Fever, Shortness of breath Exacerbated by: Denies Relieved by: Denies Similar symptoms previously: Yes Recently seen / treated by doctor: Yes - Related Data Allergies/Adverse Reactions: codeine Allergy (Verified 11/05/17 15:57) oxycodone [Oxycodone] Adverse Reaction (Mild, Verified 11/05/17 14:32) Past Medical History - General Information source: Patient - Social History Smoking Status: Current Every Day Smoker Cigarette use (# per day): Yes - 1 pack per day Chew tobacco use (# tins/day): No Frequency of alcohol use: None Drug Abuse: None Lives with: Family Family History: Reviewed & Not Pertinent - No thromboembolic disorders Patient has suicidal ideation: No Patient has homicidal ideation: No - Past Medical History Cardiac Medical History: Reports: Hx Hypercholesterolemia, Hx Hypertension Neurological Medical History: Reports: Hx Seizures Renal/ Medical History: Denies: Hx Peritoneal Dialysis Psychiatric Medical History: Reports: Hx Depression Past Surgical History: Reports: Hx Hysterectomy, Hx Neurologic Surgery - Decompression of Chiari 1 malformation, Hx Orthopedic Surgery - right arthroscopy - Immunizations Hx Diphtheria, Pertussis, Tetanus Vaccination: No Review of Systems - Review of Systems Constitutional: denies: Chills, Fever EENT: No symptoms reported Cardiovascular: See HPI Respiratory: No symptoms reported Gastrointestinal: No symptoms reported Genitourinary: No symptoms reported Female Genitourinary: No symptoms reported Musculoskeletal: No symptoms reported Skin: No symptoms reported Hematologic/Lymphatic: No symptoms reported Neurological/Psychological: No symptoms reported Physical Exam - Vital signs Vitals: Resp BP Pulse Ox 18 160/94 H 96 11/05/17 17:09 11/05/17 17:09 11/05/17 17:09 Notes: Physical exam: GENERAL: a 52-year-old female who is alert and oriented 3, no acute distress at this time. Her blood pressure is 142/70 at the time of this evaluation. HEAD: Atraumatic, normocephalic. EYES: Pupils equal round and reactive to light, extraocular movements intact, sclera anicteric, conjunctiva are normal. ENT: TMs normal, nares patent, oropharynx clear without exudates. Moist mucous membranes. NECK: Normal range of motion, supple without obvious mass or JVD. LUNGS: Breath sounds clear to auscultation bilaterally and equal. No wheezes rales or rhonchi. HEART: Regular rate and rhythm without murmurs, rubs or gallops. ABDOMEN: Soft, normoactive bowel sounds. No tenderness to palpation. No guarding, no rebound. No masses appreciated. EXTREMITIES: Normal range of motion, no pitting or edema. No clubbing or cyanosis. NEUROLOGICAL: Cranial nerves II through XII grossly intact. Normal speech, moving all extremities. PSYCH: Normal mood, normal affect. SKIN: Warm, Dry, normal turgor, no rashes or lesions noted. Course - Vital Signs Vital signs: Temp Pulse Resp BP Pulse Ox 11 L 131/78 H 96 11/06/17 03:00 11/06/17 03:00 11/06/17 03:00 - Laboratory Result Diagrams: 11/05/17 16:05 11/05/17 16:05 Laboratory results interpreted by me: 11/05/17 11/05/17 16:05 16:05 Hgb 15.6 H Chloride 109 H BUN 21 H Glucose 129 H - Diagnostic Test Radiology reviewed: Image reviewed, Reports reviewed - CTA of the aorta/chest shows no dissection, no PE - EKG Interpretation by Me Rate: Tachycardia Rhythm: NSR, Arrthymia - EKG shows sinus tachycardia with a ventricular rate of 107, no acute ST-T wave changes, V. Fib Discharge - Discharge Clinical Impression: Chest pain Condition: Stable Disposition: ADMITTED OBSERVATION Admitting Provider: Hospitalist - Dr Saravia Unit Admitted: Telemetry
[2017-11-06] MEDS ORDERED: MORPHINE SULFATE 10 MG/ML INJ IV ONE (00:42)
[2017-11-06] MEDS ORDERED: TRAZODONE HCL 50 MG TABLET PO SCH (01:00)
[2017-11-06] MEDS ORDERED: GLUCAGON,HUMAN RECOMB 1 MG INJ SUBCUT PRN (03:51)
[2017-11-06] MEDS ORDERED: ACETAMINOPHEN 325 MG TABLET PO PRN (03:51)
[2017-11-06] MEDS ORDERED: DEXTROSE 50%-WATER 25 GM/50 ML DISP.SYRIN IV PRN ×2 (03:51)
[2017-11-06] MEDS ORDERED: TEMAZEPAM 7.5 MG CAPSULE PO PRN (03:51)
[2017-11-06] MEDS ORDERED: DEXTROSE 40% GEL 15 GM TUBE PO PRN ×2 (03:51)
[2017-11-06] MEDS ORDERED: MAG HYDROX/AL HYDROX/SIMETH SUSP 30 ML UDCUP PO PRN (03:51)
[2017-11-06] MEDS ORDERED: PROMETHAZINE HCL INJ 25 MG/1 ML VIAL IV PRN (03:51)
[2017-11-06] MEDS ORDERED: LABETALOL HCL INJ 20 MG/4 ML DISP.SYRIN IV PRN (03:58)
[2017-11-06] MEDS ORDERED: NITROGLYCERIN 0.4 MG/TAB 25 TAB/BOTTLE SL PRN (04:47)
[2017-11-06] MEDS ORDERED: MORPHINE SULFATE 10 MG/ML INJ IV PRN (04:47)
--- NOTE | 2017-11-06 04:50 | PDOC H&P ---
History of Present Illness Admission Date/PCP: 11/05/17 22:17 JUN WEBSTER Patient complains of: Chest pain History of Present Illness: NIMO OLIVARES is a 52 year old female. Patient tells me that last Saturday a week ago she was vacuuming and started with chest pain and shortness of breath, she fell she passed out, she called 911 and was brought to the emergency department where blood work and EKG was done and she was sent home with appointment with her PCP. 2 days ago she had the appointment with her PCP she was found with increased blood pressure and she was asked to take her blood pressure medication and was scheduled for a stress test. Yesterday around 2 PM she was watching TV and she started with retrosternal chest pain radiated to her left breast, left upper extremity, sharp and stabbing radiated also to the back. In the emergency department when she was walking to tryshe started being dizzy, chest tightness like passing out. Associated with shortness of breath, nausea, denies vomiting, diaphoresis, tells me that she has a black dot on her right eye since yesterday. The episode today has been constant and is still persistent when he went to see her in the ED. Nitroglycerin sublingual did not help but when nitroglycerin patch and morphine IV was given her pain went down from 9/10 in intensity to 5/10 in intensity. She has been having similar symptoms for the last 2 weeks but in less intensity. Never had a stress test in the past. Initial blood pressure 200/119. EKG normal sinus with arrhythmia, ventricular rate 107. First set of troponins negative. CTA - PE Past Medical History Cardiac Medical History: Reports: Hyperlipidema, Hypertension Neurological Medical History: Reports: Seizures, Other - Budd Chiari malformation with decompression surgery in 2012 Psychiatric Medical History: Reports: Depression Hematology: Reports: Anemia Past Surgical History Past Surgical History: Reports: Hysterectomy, Orthopedic Surgery - right arthroscopy, Other - Back surgery in 2016 L4, L5, S1 Social History Lives with: Family Smoking Status: Current Every Day Smoker Cigars Per Day: 10 - 10-12/day Frequency of Alcohol Use: Rare Hx Recreational Drug Use: No Hx Prescription Drug Abuse: No Family History Family History: Reviewed & Not Pertinent - No thromboembolic disorders Family History: Mother is alive, 72 years old with history of CHF, diabetes mellitus and MO on her 60s. Father at 72 years old history of hypertension. The grandmother and grandfather on her father's side with history of CVA Parental Family History Reviewed: Yes - As above Children Family History Reviewed: NA Sibling(s) Family History Reviewed.: NA Medication/Allergy Home Medications: Atenolol [Tenormin 50 mg Tablet] 50 mg PO DAILY 03/08/13 Butalb/Acetaminophen/Caffeine [Fioricet (50-325-40 mg) Tablet] 1 tab PO Q6H PRN 03/08/13 Clonazepam [Klonopin 1 mg Tablet] 1 mg PO QID 03/08/13 Cyclobenzaprine HCl [Flexeril 10 mg Tablet] 10 mg PO TID PRN 03/08/13 Isosorbide Mononitrate [Imdur] 30 mg PO DAILY 03/08/13 Naproxen Sodium 1 tab PO PRN PRN 03/08/13 Paroxetine HCl [Paxil 20 mg Tablet] 60 mg PO DAILY 03/08/13 Simvastatin 10 mg PO DAILY 03/08/13 Trazodone HCl [Desyrel] 100 mg PO QHS 03/08/13 Prednisone [Deltasone 20 mg Tablet] 20 mg PO QAM #25 tablet 06/11/13 Ciprofloxacin HCl [Cipro 500 mg Tablet] 500 mg PO BID #6 tablet 12/05/13 Potassium Chloride 40 meq PO DAILY #4 tab.er.prt 12/05/13 Amlodipine Besylate [Norvasc 5 mg Tablet] 5 mg PO DAILY #30 tablet 04/19/17 Allergies/Adverse Reactions: codeine Allergy (Verified 11/05/17 15:57) oxycodone [Oxycodone] Adverse Reaction (Mild, Verified 11/05/17 14:32) Review of Systems Review of Systems: As outlined in the HPI, others negative Physical Exam Vital Signs: Temp Pulse Resp BP Pulse Ox 10 L 132/74 H 86 L 11/06/17 04:01 11/06/17 04:00 11/06/17 04:01 Additional comments: General appearance: Obese, alert and cooperative, and appears to be in no acute distress Head: Normocephalic Eyes: PEERL, EOMI, vision is grossly intact. Ears: External auditory canal and tympanic membranes clear, hearing grossly intact. Nose: No nasal discharge. Throat: Oral cavity and pharynx normal. No inflammation, swelling, exudate or lesions. Neck: Neck supple, nontender without lymphadenopathy, masses or thyromegaly. Cardiac: Normal S1 and S2. No S3, S4 or murmurs. Rhythm is regular. There is no peripheral edema, cyanosis or pallor. Extremities are warm and well perfused. Capillary refill is less than 2 seconds. No carotid bruits. Thorax: No reproducible pain to palpation Lungs: Clear to auscultation and percussion without rales, rhonchi, wheezing or diminished breath sounds. Not using accessory muscles. Abdomen: Positive bowel sounds. Soft. Nondistended, nontender. No guarding or rebound. No masses. No hepatosplenomegaly Extremities: No significant deformity or joint abnormality. No edema. Peripheral pulses intact. No varicosities. Neurological: Cranial nerves II through XII grossly intact. Strength and sensation symmetric and intact throughout. Reflexes 2+ throughout. Skin: Skin normal color, texture and turgor with no lesions or eruptions, warm and dry. Psychiatric: The mental examination revealed the patient was oriented to person , place, and time. The patient was able to demonstrate good judgment on recent , without hallucinations, abnormal affect or abnormal behaviors. Results Laboratory Results: 11/05/17 11/05/17 11/05/17 16:05 16:05 16:05 WBC 9.6 RBC 4.68 Hgb 15.6 H Hct 45.3 MCV 97 MCH 33.3 MCHC 34.5 RDW 12.8 Plt Count 242 Seg Neutrophils % 68.5 Lymphocytes % 24.5 Monocytes % 5.6 Eosinophils % 0.9 Basophils % 0.5 Absolute Neutrophils 6.6 Absolute Lymphocytes 2.3 Absolute Monocytes 0.5 Absolute Eosinophils 0.1 Absolute Basophils 0.0 Sodium 143.8 Potassium 3.9 Chloride 109 H Carbon Dioxide 26 Anion Gap 9 BUN 21 H Creatinine 0.77 Est GFR ( Amer) > 60 Est GFR (Non-Af Amer) > 60 Glucose 129 H Calcium 9.5 Total Bilirubin 0.4 Direct Bilirubin 0.3 Neonat Total Bilirubin Not Reportable AST 19 ALT 15 Alkaline Phosphatase 68 Troponin I < 0.012 Total Protein 7.0 Albumin 4.1 11/05/17 21:51 WBC RBC Hgb Hct MCV MCH MCHC RDW Plt Count Seg Neutrophils % Lymphocytes % Monocytes % Eosinophils % Basophils % Absolute Neutrophils Absolute Lymphocytes Absolute Monocytes Absolute Eosinophils Absolute Basophils Sodium Potassium Chloride Carbon Dioxide Anion Gap BUN Creatinine Est GFR ( Amer) Est GFR (Non-Af Amer) Glucose Calcium Total Bilirubin Direct Bilirubin Neonat Total Bilirubin AST ALT Alkaline Phosphatase Troponin I < 0.012 Total Protein Albumin Impressions: Chest X-Ray 11/05/17 16:00 IMPRESSION: NO ACUTE RADIOGRAPHIC FINDING IN THE CHEST. Abdomen/Pelvis CTA 11/05/17 18:51 IMPRESSION: NO ABDOMINAL AORTIC ANEURYSM, DISSECTION OR SIGNIFICANT STENOSIS. NO SIGNIFICANT FINDINGS IN THE ABDOMEN. Chest/Abdomen CTA 11/05/17 18:51 IMPRESSION: No evidence of pulmonary emboli. Normal aorta. Stable right pulmonary nodule. Assessment & Plan - Diagnosis (1) Chest pain Qualifiers: Chest pain type: unspecified Qualified Code(s): R07.9 - Chest pain, unspecified Is this a current diagnosis for this admission?: Yes Plan: Patient comes with a history of chest pain for the last 2 weeks, worsening yesterday. Never had a stress test in the past. Has some typical symptoms. 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 NTG sublingual and IV morphine as needed. Hemoglobin A1c and lipid panel in the morning. Placed cardiology consultation with Dr. Vásquez. We will send urine drug screen. (2) Hypertension Qualifiers: Hypertension type: unspecified Qualified Code(s): I10 - Essential (primary ) hypertension Is this a current diagnosis for this admission?: Yes Plan: Hypertensive urgency: Initial blood pressure 200/119. Her blood pressure is well controlled now 130/80's. Resume labetalol IV as needed. - Time Time Spent: 30 to 50 Minutes
[2017-11-06 05:50] LABS: CHOLESTEROL 234.86 mg/dL (0-200); TRIGLYCERIDES 164 mg/dL (<150)
[2017-11-06 06:01] LABS: DIRECT LDL 153 mg/dL (<100)
[2017-11-06 06:07] LABS: VLDL CHOLESTEROL 32.8 mg/dL (10-31)
[2017-11-06 08:56] LABS: APPEARANCE,URINE SLIGHTLY-CLOUDY; BILIRUBIN,URINE NEGATIVE (NEGATIVE); COLOR,URINE YELLOW; GLUCOSE, URINE NEGATIVE (NEGATIVE); KETONES,URINE NEGATIVE (NEGATIVE); LEUKOCYTE ESTERASE,URINE NEGATIVE (NEGATIVE); NITRITE,URINE NEGATIVE (NEGATIVE); PROTEIN,URINE NEGATIVE (NEGATIVE); URINE SPECIFIC GRAVITY 1.054; UROBILINOGEN,URINE NEGATIVE mg/dL (<2.0)
[2017-11-06 09:23] LABS: URINE AMPHETAMINES SCREEN NEGATIVE; URINE BARBITURATES SCREEN NEGATIVE; URINE BENZODIAZEPINES SCREEN NEGATIVE; URINE COCAINE SCREEN NEGATIVE; URINE MARIJUANA (THC) SCREEN NEGATIVE; URINE METHADONE SCREEN NEGATIVE; URINE PHENCYCLIDINE SCREEN NEGATIVE
--- NOTE | 2017-11-06 13:57 | EKG REPORT ---
SEVERITY:- ABNORMAL ECG - SINUS RHYTHM NONSPECIFIC T ABNORMALITIES, ANTERIOR LEADS : Confirmed by: Toni Stewart MD 06-Nov-2017 13:57:24
[2017-11-06] MEDS: LANSOPRAZOLE 30 MG TAB.RAP.DR PO SCH ×2 (14:35→17:24)
--- NOTE | 2017-11-06 14:49 | PDOC PROGRESS REPORT ---
Subjective Progress Note for:: 11/06/17 Subjective:: The patient is very upset. She believes that nursing has told her that her chest pain is "just due to panic attack". She is concerned that the nurse got this information from a doctor. I told her that I didn't know who that might have been. Reason For Visit: CHEST PAIN Physical Exam Vital Signs: Temp Pulse Resp BP Pulse Ox 97.9 F 78 16 136/76 H 98 11/06/17 11:50 11/06/17 11:50 11/06/17 11:50 11/06/17 11:50 11/06/17 11:50 Intake & Output 11/05/17 11/06/17 11/07/17 06:59 06:59 06:59 Weight 116.1 kg General appearance: PRESENT: mild distress - Due top concerns as stated above., morbidly obese Respiratory exam: PRESENT: other - No increased in work of breathing.. ABSENT: rales, rhonchi, wheezes Cardiovascular exam: PRESENT: irregular rhythm. ABSENT: diastolic murmur, RRR, systolic murmur Pulses: PRESENT: normal dorsalis pedis pul GI/Abdominal exam: PRESENT: normal bowel sounds, soft. ABSENT: hernia, mass, organolmegaly, tenderness Extremities exam: PRESENT: full ROM. ABSENT: clubbing, joint swelling, pedal edema, tenderness Musculoskeletal exam: PRESENT: normal inspection. ABSENT: deformity, dislocation, tenderness Neurological exam: PRESENT: alert, awake, oriented to person, oriented to place , oriented to time, oriented to situation, CN II-XII grossly intact. ABSENT: motor sensory deficit Psychiatric exam: PRESENT: anxious Skin exam: PRESENT: dry, intact, warm Results Laboratory Results: 11/06/17 11/06/17 04:40 08:20 Triglycerides 164 H Cholesterol 234.86 H LDL Cholesterol Direct 153 H VLDL Cholesterol 32.8 H HDL Cholesterol 57 Urine Color YELLOW Urine Appearance SLIGHTLY-CLOUDY Urine pH 5.0 Ur Specific [place] 1.054 Urine Protein NEGATIVE Urine Glucose (UA) NEGATIVE Urine Ketones NEGATIVE Urine Blood NEGATIVE Urine Nitrite NEGATIVE Ur Leukocyte Esterase NEGATIVE Urine WBC (Auto) 2 Urine RBC (Auto) 5 11/06/17 11/06/17 04:40 11:00 Troponin I < 0.012 < 0.012 Impressions: Chest X-Ray 11/05/17 16:00 IMPRESSION: NO ACUTE RADIOGRAPHIC FINDING IN THE CHEST. Abdomen/Pelvis CTA 11/05/17 18:51 IMPRESSION: NO ABDOMINAL AORTIC ANEURYSM, DISSECTION OR SIGNIFICANT STENOSIS. NO SIGNIFICANT FINDINGS IN THE ABDOMEN. Chest/Abdomen CTA 11/05/17 18:51 IMPRESSION: No evidence of pulmonary emboli. Normal aorta. Stable right pulmonary nodule. Assessment & Plan - Diagnosis (1) Abnormal EKG Is this a current diagnosis for this admission?: Yes Plan: New downgoing T's anterio-laterally. Stress testing is postponed as per cardiology. (2) Syncope Qualifiers: Syncope type: unspecified Qualified Code(s): R55 - Syncope and collapse Is this a current diagnosis for this admission?: Yes Plan: Echocardiogram, cardiology consult, and stress test. SARAHY. (3) Chest pain Qualifiers: Chest pain type: unspecified Qualified Code(s): R07.9 - Chest pain, unspecified Is this a current diagnosis for this admission?: Yes Plan: No further chest pain. (4) Hypertension Qualifiers: Hypertension type: unspecified Qualified Code(s): I10 - Essential (primary ) hypertension Is this a current diagnosis for this admission?: Yes Plan: Currently controlled. - Time Time Spent with patient: 35 or more minutes Medications reviewed and adjusted accordingly: Yes
[2017-11-06] MEDS: ENOXAPARIN SODIUM INJ 40 MG/0.4 ML DISP.SYRIN SUBCUT SCH (15:40)
--- NOTE | 2017-11-06 17:59 | XCELERA REPORT ---
[address] [address] Transthoracic Echocardiogram Report Name: NIMO OLIVARES Age: 52 yrs Gender: Female : 1965 Patient Status: Inpatient Patient Location: [address] [place] [address] Study Date: 11/06/2017 02:33 PM Procedure: A complete two-dimensional transthoracic echocardiogram was performed (2D, M-mode, spectral and color flow Doppler). The study was technically difficult with many images being suboptimal in quality. Reason For Study: chest pain and syncope Ordering Physician: BIENVENIDO CHOUDHURY Performed By: Kira Weiss Interpretation Summary The left ventricular ejection fraction is normal. There is mild concentric left ventricular hypertrophy. The left ventricle is grossly normal size. Doppler measurements suggest pseudonormalized left ventricular relaxation, which is associated with grade II/IV or mild to moderate diastolic dysfunction Wall motion cannot be accurately commented on, but no definite regional wall motion abnormalities noted. The right ventricle is grossly normal size. The right ventricular systolic function is normal. The left atrial size is normal. The right atrium is normal in size There is a trace amount of mitral regurgitation There is no mitral valve stenosis. There is no aortic valve stenosis No aortic regurgitation is present. There is no tricuspid stenosis. No tricuspid regurgitation. The aortic root is not well visualized but is probably normal size. The inferior vena cava was not well visualized There is no pericardial effusion. The study was technically difficult with many images being suboptimal in quality. Consider alternative methods to evaluate LVEF such as MUGA scan, cardiac MRI, or cardiac CTA. MMode/2D Measurements & Calculations RVDd: 3.0 cm LVIDd: 4.7 cm FS: 36.3 % Ao root diam: 3.0 cm IVSd: 1.1 cm LVIDs: 3.0 cm EDV(Teich): 103.3 ml Ao root area: 7.0 cm2 LVPWd: 0.99 cm ESV(Teich): 35.2 ml EF(Teich): 65.9 % Doppler Measurements & Calculations MV E max jayme: MV dec slope: Ao V2 max: LV V1 max P.9 cm/sec 191.4 cm/sec 8.1 mmHg MV A max jayme: 615.0 cm/sec2 Ao max PG: LV V1 max: 98.5 cm/sec MV dec time: 0.12 sec14.7 mmHg 142.3 cm/sec MV E/A: 0.75 PA V2 max: 135.8 cm/sec PA max P.4 mmHg Left Ventricle The left ventricle is grossly normal size. There is mild concentric left ventricular hypertrophy. The left ventricular ejection fraction is normal. Doppler measurements suggest pseudonormalized left ventricular relaxation, which is associated with grade II/IV or mild to moderate diastolic dysfunction. Wall motion cannot be accurately commented on, but no definite regional wall motion abnormalities noted. Right Ventricle The right ventricle is grossly normal size. There is normal right ventricular wall thickness. The right ventricular systolic function is normal. Atria The right atrium is normal in size. The left atrial size is normal. Interarterial septum not well visualized and not well dopplered. Cannot comment on ASD/PFO presence. Mitral Valve The mitral valve leaflets are sclerotic, but show no functional abnormalities. There is no mitral valve stenosis. There is a trace amount of mitral regurgitation. Aortic Valve The aortic valve opens well. There is no aortic valve stenosis. No aortic regurgitation is present. Tricuspid Valve The tricuspid valve is not well visualized, but is grossly normal. There is no tricuspid stenosis. No tricuspid regurgitation. Pulmonic Valve The pulmonic valve is not well visualized. Great Vessels The aortic root is not well visualized but is probably normal size. The inferior vena cava was not well visualized. Effusions There is no pericardial effusion. Incidental Findings Consider alternative methods to evaluate LVEF such as MUGA scan, cardiac MRI, or cardiac CTA. : BIENVENIDO CHODUHURY > Mariely Vásquez
[2017-11-06] MEDS ORDERED: VENLAFAXINE HCL 37.5 MG CAP.SR.24H PO PRN (18:19)
--- NOTE | 2017-11-06 18:23 | PDOC CONSULTATION ---
Consultation Consult Date: 11/06/17 Attending physician:: BIENVENIDO CHOUDHURY Consult reason:: Chest pain, abnormal EKG History of Present Illness Admission Date/PCP: 11/05/17 22:17 JNU WEBSTER Patient complains of: Chest pain History of Present Illness: NIMO OLIVARES is a 52 year old female was admitted to the emergency department. Patient tells me that last Saturday a week ago she was vacuuming and started with chest pain and shortness of breath, she fell she passed out, she called 911 and was brought to the emergency department where blood work and EKG was done and she was sent home with appointment with her PCP. 2 days ago she had the appointment with her PCP she was found with increased blood pressure and she was asked to take her blood pressure medication and was scheduled for a stress test. Yesterday around 2 PM she was watching TV and she started with retrosternal chest pain radiated to her left breast, left upper extremity, sharp and stabbing radiated also to the back. In the emergency department when she was walking to tryshe started being dizzy, chest tightness like passing out. Associated with shortness of breath, nausea, denies vomiting, diaphoresis , tells me that she has a black dot on her right eye since yesterday. The episode today has been constant and is still persistent when he went to see her in the ED. Nitroglycerin sublingual did not help but when nitroglycerin patch and morphine IV was given her pain went down from 9/10 in intensity to 5/10 in intensity. She has been having similar symptoms for the last 2 weeks but in less intensity. Never had a stress test in the past. Initial blood pressure 200/119. EKG normal sinus with arrhythmia, ventricular rate 107. First set of troponins negative. CTA - PE This history obtained by the hospitalist was reviewed and confirmed. Patient had a CTA of the chest which was noted to be negative. A nuclear stress test was scheduled however when the nuclear supervising operator went to inject patient, she was noted to have chest pain. An earlier EKG had shown some nonspecific T-wave inversion which were new. It was felt that patient will benefit from cardiology consultation with further evaluation and management. Nuclear stress test has been postponed till tomorrow. A 2D echo obtained showed normal LVEF without any significant valvular abnormalities. Past Medical History Cardiac Medical History: Reports: Hyperlipidema, Hypertension Neurological Medical History: Reports: Seizures, Other - Budd Chiari malformation with decompression surgery in 2013 Psychiatric Medical History: Reports: Depression Hematology: Reports: Anemia Past Surgical History Past Surgical History: Reports: Hysterectomy, Orthopedic Surgery - right arthroscopy, Other - Back surgery in 2016 L4, L5, S1 Social History Information Source: Patient Lives with: Family Smoking Status: Former Smoker Cigars Per Day: 8 Number of Years Smokin Frequency of Alcohol Use: None Hx Recreational Drug Use: No Drugs: None Hx Prescription Drug Abuse: No - Advance Directive Resuscitation Status: Full Code Family History Family History: Hypertension Parental Family History Reviewed: Yes Children Family History Reviewed: Yes Sibling(s) Family History Reviewed.: Yes Medication/Allergy Home Medications: Gabapentin [Neurontin 300 mg Capsule] 600 mg PO Q8 11/06/17 Lisinopril/Hydrochlorothiazide [Lisinopril-Hctz 20-25 mg Tab] 1 each PO DAILY Melatonin 20 mg PO QHS 11/06/17 Trazodone HCl [Desyrel] 300 mg PO QHS 11/06/17 Venlafaxine HCl ER [Effexor Xr 37.5 mg Cap.sr] 37.5 mg PO HSP PRN 11/06/17 Allergies/Adverse Reactions: codeine Allergy (Verified 11/05/17 15:57) oxycodone [Oxycodone] Adverse Reaction (Mild, Verified 11/05/17 14:32) Review of Systems Review of Systems: Please see history of present illness and past medical history as wall. Constitutional: No fever or chills reported. Head : No recent chronic headaches, recent head injury. Eyes: No recent eye pain, diplopia, redness, discharge, acute visual changes. Ears: No recent chronic ear pain, acute hearing loss, ear discharge. Oral cavity: No recent ulcerations, bleeding, oral cavity discomfort. Neck: No recent acute neck pain reported. Hematologic: No recent easy bruising or bleeding. Lymphatic: No recent lymph node enlargement reported. Cardiovascular system review: See history of present illness. Respiratory system review: No hemoptysis or blood clots in the lungs reported. Mild Shortness of breath on exertion Gastrointestinal system review: Negative for any recent acute hematemesis, melena. Genitourinary system review: No recent acute or chronic hematuria, flank pain, UTI etc. reported. Skin system review: Negative for any recent abnormal bruising, no rash, no pruritus reported. Neurologic: No prior history of strokes, mini strokes, seizure disorder. History of recent syncope. Psychologic: No history of major psychosis or major depression reported. Musculoskeletal: Minor aches and pains reported. No acute joint swelling reported. History of chronic back pain. Endocrine: No recent polyuria, polydipsia, recent heat or cold intolerance. Physical Exam Vital Signs: Temp Pulse Resp BP Pulse Ox 98.3 F 86 16 129/61 H 98 11/06/17 15:29 11/06/17 15:29 11/06/17 15:29 11/06/17 15:29 11/06/17 15:29 Intake & Output 11/05/17 11/06/17 11/07/17 06:59 06:59 06:59 Weight 116.1 kg Exam: GENERAL: well-nourished and in no acute distress. Alert and oriented x3 HEAD: Atraumatic, normocephalic. EYES: Pupils equal round and reactive to light, extraocular movements intact, sclera anicteric, conjunctiva are normal. ENT: TMs normal, nares patent, oropharynx clear without exudates. Moist mucous membranes. No oral ulcerations or bleeding gums noted NECK: supple without lymphadenopathy. Trachea is central. No cervical or axillary lymphadenopathy noted. Carotids are 2+, JVD WNL LUNGS: Respiration seems nonlabored, no significant accessory muscle action noted. Breath sounds clear to auscultation bilaterally and equal noted. No wheezes rales or rhonchi noted. No significant dullness noted on percussion. CHEST: Palpation of the chest wall shows no significant chest wall tenderness. 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 ABDOMEN: Soft, no significant tenderness appreciated, normoactive bowel sounds. No guarding, no rebound. No rigidity noted . No masses appreciated. EXTREMITIES: Pedal pulses are 1-2+, no calf tenderness noted. No clubbing or cyanosis. negative pedal edema noted NEUROLOGICAL: Focused neurological exam showed no significant neurologic deficit. Normal speech, no focal weakness appreciated. PSYCH: Normal mood, normal affect. Judgment and insight within normal limits. SKIN: No significant ecchymosis, skin is noted to be warm. MUSCULOSKELETAL EXAM: No significant acute joint swelling noted. Results Laboratory Results: 11/06/17 11/06/17 04:40 08:20 Triglycerides 164 H Cholesterol 234.86 H LDL Cholesterol Direct 153 H VLDL Cholesterol 32.8 H HDL Cholesterol 57 Urine Color YELLOW Urine Appearance SLIGHTLY-CLOUDY Urine pH 5.0 Ur Specific [place] 1.054 Urine Protein NEGATIVE Urine Glucose (UA) NEGATIVE Urine Ketones NEGATIVE Urine Blood NEGATIVE Urine Nitrite NEGATIVE Ur Leukocyte Esterase NEGATIVE Urine WBC (Auto) 2 Urine RBC (Auto) 5 11/06/17 11/06/17 04:40 11:00 Troponin I < 0.012 < 0.012 EKG Comments: Initial EKG shows sinus tachycardia, subsequent EKG shows sinus tachycardia with minor nonspecific T-wave inversion in inferior and anterior precordial leads. Impressions: Chest X-Ray 11/05/17 16:00 IMPRESSION: NO ACUTE RADIOGRAPHIC FINDING IN THE CHEST. Abdomen/Pelvis CTA 11/05/17 18:51 IMPRESSION: NO ABDOMINAL AORTIC ANEURYSM, DISSECTION OR SIGNIFICANT STENOSIS. NO SIGNIFICANT FINDINGS IN THE ABDOMEN. Chest/Abdomen CTA 11/05/17 18:51 IMPRESSION: No evidence of pulmonary emboli. Normal aorta. Stable right pulmonary nodule. Assessment & Plan - Diagnosis (1) Chest pain Qualifiers: Chest pain type: unspecified Qualified Code(s): R07.9 - Chest pain, unspecified Is this a current diagnosis for this admission?: Yes (2) Obesity Qualifiers: Obesity type: unspecified obesity type Obesity classification: unspecified obesity classification Is this a current diagnosis for this admission?: Yes (3) Abnormal EKG Is this a current diagnosis for this admission?: Yes (4) Hypertension Qualifiers: Hypertension type: unspecified Qualified Code(s): I10 - Essential (primary ) hypertension Is this a current diagnosis for this admission?: Yes (5) Syncope Qualifiers: Syncope type: unspecified Qualified Code(s): R55 - Syncope and collapse Is this a current diagnosis for this admission?: Yes (6) Hyperlipidemia Qualifiers: Hyperlipidemia type: unspecified Qualified Code(s): E78.5 - Hyperlipidemia , unspecified Is this a current diagnosis for this admission?: Yes - Notes Notes: Chest pain: Multiple differential diagnosis discussed. Patient has some typical and atypical features of chest pain. Cardiac enzymes so far has been negative. Electrocardiogram did not show any definitive ST segment changes. Multiple differential diagnoses exist in this patient. In descending order of probability this includes underlying coronary artery disease, gastroesophageal reflux, musculoskeletal pain, referred pain from elsewhere, anxiety panic disorder etc.Patient has significant cardiac risk factors, which indicates that there is a intermediate probability of chest discomfort coming from underlying CAD. Feel that it would need to be evaluated further. Discussed evaluation to assess this. In this regard risk benefits of nuclear stress test and other alternative processes were discussed in detail. The patient prefers to undergo nuclear stress test. The small risk of radiation, myocardial infarction, , cardiac arrhythmias, respiratory distress etc. were discussed. Patient understood the risks and gave informed consent. Nuclear stress test was therefore scheduled. For risk evaluation, patient is also being scheduled for a 2-D echocardiogram. Patient questions were answered. Syncope: The cause is undetermined at this time. There could be multiple differential diagnosis. this includes cardiac arrhythmia in this patient's age group, hypotension secondary to orthostasis, seizure disorder, hypoglycemia et cetera. Both philippe and tachyarrhythmias are possible. Patient will benefit from cardiac monitoring during this admission. May need to consider outpatient cardiac monitoring using mobile cardiac monitoring analyst if clinically indicated. Hypertension: Reasonably well controlled. Blood pressure goal in this patient is 135/85 or less. This was discussed with the patient. Currently blood pressure under reasonable control. Better medication for this patient are YOLA inhibitor/ARB/beta сергей etc. discussed side effects of uncontrolled hypertension and also severe hypotension. Hyperlipidemia: LDL goal is less than 100 at present. Recommend statin therapy at least intermediate or high dose, of high potency status. Periodic lipid panel and liver panel is indicated. Patient to report any significant muscle discomfort or other side effects. Obesity: Discussed adverse effect of overweight/obesity on cardiovascular event rate, sleep apnea, diabetes and hypertension et cetera. Patient has been recommended weight loss. - Time Time Spent: 30 to 50 Minutes - More than 50% of the time spent coordinating care , discussing management plans with involved caregivers. Management plans discussed with involved personnels. Medical decision making was of moderate to high complexity, patient's has multiple comorbidities. Medications reviewed and adjusted accordingly: Yes
[2017-11-06] MEDS ORDERED: (PENDING PHARMACY ID) (Lisinopril/Hydrochlorothiazide [Lisinopril-Hctz 20-25 Mg Tab] 1 EAC PO SCH (18:30)
[2017-11-06] MEDS: MELATONIN 5 MG TABLET PO SCH (21:25)
[2017-11-06] MEDS: ATORVASTATIN CALCIUM 40 MG TABLET PO SCH (21:25)
[2017-11-06] MEDS: GABAPENTIN 300 MG CAPSULE PO SCH (21:25)
[2017-11-06] MEDS: LISINOPRIL 10 MG TABLET PO SCH (21:25)
[2017-11-06] MEDS: TRAZODONE HCL 50 MG TABLET PO SCH (21:26)
[2017-11-06] MEDS: HYDROCHLOROTHIAZIDE 25 MG TABLET PO SCH (21:26)
[2017-11-06] MEDS ORDERED: (PENDING PHARMACY ID) (Trazodone Hcl [Desyrel] 300 MG) PO SCH (22:00)
[2017-11-06] MEDS ORDERED: MELATONIN 20 MG PO SCH (22:00)
[2017-11-07 09:29] LABS: PHOSPHORUS 4.4 mg/dL (2.5-4.5)
[2017-11-07] MEDS: ENOXAPARIN SODIUM INJ 40 MG/0.4 ML DISP.SYRIN SUBCUT SCH (09:33)
[2017-11-07] MEDS: LISINOPRIL 10 MG TABLET PO SCH (11:57)
[2017-11-07] MEDS: HYDROCHLOROTHIAZIDE 25 MG TABLET PO SCH (11:57)
[2017-11-07] MEDS: GABAPENTIN 300 MG CAPSULE PO SCH ×3 (14:06→21:59)
[2017-11-07] MEDS ORDERED: REGADENOSON INJ 0.4 MG/5 ML DISP.SYRIN IV ONE (15:12)
[2017-11-07] MEDS: LANSOPRAZOLE 30 MG TAB.RAP.DR PO SCH ×2 (17:48→18:35)
--- NOTE | 2017-11-07 19:37 | DRAGON STRESS TEST REPORT ---
INTRAVENOUS LEXISCAN CARDIOLITE STRESS TEST USING SINGLE PHOTON EMMISION COMPUTERIZED TOMOGRAPHIC. DATE OF PROCEDURE: November 07, 2017, INDICATION : Chest pain CARDIAC RISK FACTORS: Diabetes, hypertension, dyslipidemia RESTING EKG: Sinus rhythm, no significant baseline ST-T wave changes are noted STRESS EKG: No significant ST segment changes noted with LexiScan bolus REASON FOR TERMINATION: Protocol. PROCEDURE REPORT: Baseline heart rate 88 beats per minute with blood pressure of 159/97. Patient had no significant complaints. Patient was bolused with Lexiscan 0.4 mg intravenously followed by saline bolus. Heart rate at 2 minutes post bolus 116 with a blood pressure of 160/72. 3 minutes post bolus heart rate 106 with blood pressure of 178/76. No significant EKG changes were noted. Patient had no significant complaints during the procedure or postprocedure. CONCLUSIONS: Normal EKG and hemodynamic response to IV LexiScan. NUCLEAR DATA: At rest the patient was given 15.17 millicuries of technetium 99 sestamibi injected intravenously. As per protocol rest gated SPECT images were obtained. On day of stress test, the patient was given intravenous LexiScan at a dose of 0.4 mg in 5 mL intravenously, followed by flush with normal saline. Subsequently the stress dose of 46.6 millicuries of technetium 99 sestamibi was injected intravenously. As per protocol stress gated images were obtained. NUCLEAR INTERPRETATION: Both raw and processed data were used for interpretation. Visual, qualitative, computer-generated quantitative data was used. There was good myocardial uptake of technetium compound. Motion artifact and soft tissue attenuations were noted. Increased visceral uptake was noted. There was significant breast attenuation artifact noted which decreases the accuracy of the test to some extent. No definitive areas of transient perfusion defect noted, No definitive areas of fixed perfusion defect or scars noted. EKG gated imaging showed LV EF at 52 %, rest and stress gated EF similar visually. There were no regional wall motion abnormalities noted. T. I D. ratio was 0.97. Lung heart ratio noted to be within normal limits 0.18. No significant extracardiac and abnormal radiotracer activities were noted. RV free wall uptake was noted to be WNL. IMPRESSION: Also refer to comments under nuclear interpretation. Also test results needs to be interpreted in the context of pretest probability. 1. No definitive areas of transient perfusion defect noted. Please note that there was significant breast attenuation artifact noted which could hide mild ischemia or mild fixed defect. Clinical correlation is therefore requested. However also noted that no regional wall motion normalities are noted on gated imaging. 2. There is no definitive scintigraphic evidence of myocardial infarction/scar. 3. EKG gated imaging shows left ventricular ejection fraction of approx. 52 %. 4. Clinical correlation requested as worse disease and or balanced ischemia could be missed. In approximately 10% of the cases Lexiscan may not cause adequate vasodilatory stress. RECOMMENDATIONS: Aggressive risk factor modification and medical management. Further evaluation may be needed if continued symptoms or other high risk indicators are noted on clinical evaluation. Close cardiology follow-up is also recommended. Clinical correlation with echocardiogram derived ejection fraction. Inability to exercise by itself can lead to increased cardiovascular event risks. Consider cardiology consultation and or follow-up if clinically indicated. I am available for cardiology evaluation and consultation if requested by the tool and die inspector, unless patient already has a reflesher. Dr. Nemo Vásquez. MRCP Board certified in cardiology and sleep medicine. Board certified in nuclear cardiology, adult echocardiography. JENISE
[2017-11-07] MEDS: ATORVASTATIN CALCIUM 40 MG TABLET PO SCH (22:00)
[2017-11-07] MEDS: TRAZODONE HCL 50 MG TABLET PO SCH (22:00)
[2017-11-07] MEDS: MELATONIN 5 MG TABLET PO SCH (22:00)
--- NOTE | 2017-11-07 22:42 | PDOC PROGRESS REPORT ---
Subjective Progress Note for:: 11/07/17 Subjective:: Patient seems to be doing better with gradual improvement. Pt is denying any chest arm or neck discomfort. Patient denying any PND, orthopnea. Patient denied any sustained palpitations, dizziness, syncope, near syncope. Patient denying any fever chills. Patient denying any other significant discomfort. Patient is maintaining sinus rhythm. Review of systems: Rest review of systems negative. Medications: Medications have been reviewed. Reason For Visit: CHEST PAIN Physical Exam Vital Signs: Temp Pulse Resp BP Pulse Ox 98.0 F 83 16 168/84 H 100 11/07/17 15:38 11/07/17 15:38 11/07/17 15:38 11/07/17 15:38 11/07/17 15:38 Intake & Output 11/06/17 11/07/17 11/08/17 06:59 06:59 06:59 Intake Total 742 775 Balance 742 775 Weight 116 kg Exam: GENERAL: well-nourished and in no acute distress. Alert and oriented x3 HEAD: Atraumatic, normocephalic. EYES: Pupils equal round and reactive to light, extraocular movements intact, sclera anicteric, conjunctiva are normal. ENT: TMs normal, nares patent, oropharynx clear without exudates. Moist mucous membranes. No oral ulcerations or bleeding gums noted NECK: supple without lymphadenopathy. Trachea is central. No cervical or axillary lymphadenopathy noted. Carotids are 2+, JVD WNL LUNGS: Respiration seems nonlabored, no significant accessory muscle action noted. Breath sounds clear to auscultation bilaterally and equal noted. No wheezes rales or rhonchi noted. No significant dullness noted on percussion. CHEST: Palpation of the chest wall shows no significant chest wall tenderness. 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 ABDOMEN: Soft, no significant tenderness appreciated, normoactive bowel sounds. No guarding, no rebound. No rigidity noted . No masses appreciated. EXTREMITIES: Pedal pulses are 1-2+, no calf tenderness noted. No clubbing or cyanosis. negative pedal edema noted NEUROLOGICAL: Focused neurological exam showed no significant neurologic deficit. Normal speech, no focal weakness appreciated. PSYCH: Normal mood, normal affect. Judgment and insight within normal limits. SKIN: No significant ecchymosis, skin is noted to be warm. MUSCULOSKELETAL EXAM: No significant acute joint swelling noted. Results Laboratory Results: 11/07/17 04:40 Phosphorus 4.4 Magnesium 2.1 11/06/17 11/06/17 11/06/17 04:40 11:00 17:07 Troponin I < 0.012 < 0.012 < 0.012 EKG Comments: Telemetry strip shows sinus rhythm. No sustained tachycardia or bradycardia noted. Impressions: Chest X-Ray 11/05/17 16:00 IMPRESSION: NO ACUTE RADIOGRAPHIC FINDING IN THE CHEST. Abdomen/Pelvis CTA 11/05/17 18:51 IMPRESSION: NO ABDOMINAL AORTIC ANEURYSM, DISSECTION OR SIGNIFICANT STENOSIS. NO SIGNIFICANT FINDINGS IN THE ABDOMEN. Chest/Abdomen CTA 11/05/17 18:51 IMPRESSION: No evidence of pulmonary emboli. Normal aorta. Stable right pulmonary nodule. Assessment & Plan - Diagnosis (1) Chest pain Qualifiers: Chest pain type: unspecified Qualified Code(s): R07.9 - Chest pain, unspecified Is this a current diagnosis for this admission?: Yes (2) Obesity Qualifiers: Obesity type: unspecified obesity type Obesity classification: unspecified obesity classification Is this a current diagnosis for this admission?: Yes (3) Abnormal EKG Is this a current diagnosis for this admission?: Yes (4) Hypertension Qualifiers: Hypertension type: unspecified Qualified Code(s): I10 - Essential (primary ) hypertension Is this a current diagnosis for this admission?: Yes (5) Syncope Qualifiers: Syncope type: unspecified Qualified Code(s): R55 - Syncope and collapse Is this a current diagnosis for this admission?: Yes (6) Hyperlipidemia Qualifiers: Hyperlipidemia type: unspecified Qualified Code(s): E78.5 - Hyperlipidemia , unspecified Is this a current diagnosis for this admission?: Yes - Notes Notes: Chest pain: This was evaluated with a nuclear stress test which was noted to be relatively unremarkable. Breast attenuation artifacts are noted. At this point will recommend medical management with aggressive risk factor modification , weight loss etc. Obesity: Patient will benefit from weight loss. I will be happy to help patient in this regard as an outpatient. Abnormal EKG: This was evaluated by 2D echo and nuclear stress test and both were noted to be relatively unremarkable. Patient will benefit from regular walking program and weight loss. Hypertension: Blood pressure goal should be 135/85 or less in this relatively young lady. Syncope: Will recommend cardiac event monitor as an outpatient. This can be arranged through my office if indicated. Hyperlipidemia: LDL goal is less than 100. Recommend statin therapy. - Time Time with patient: Greater than 35 minutes - Patient was seen multiple times. Total time exceeds 40 minutes. In the morning nuclear stress test procedure, risks benefits, alternatives were discussed. Patient seen during the stress test. Patient also seen after stress test when results were discussed with the patient in detail. Patient's questions were answered. Nuclear stress test results were discussed with the patient. Patient was informed that no definitive evidence of pharmacologic stress-induced ischemia noted. No definite fixed defects were noted. Patient informed that occasionally significant single vessel disease or balanced ischemia could be missed. However based on the current study results, would recommend aggressive risk factor modification and medical therapy. It may also be worthwhile to consider evaluation or empiric management of other causes of chest pain. Should no other cause be found and if persistent in having chest pain, then cardiac catheterization should be considered. Right now, recommendations are for aggressive risk factor modification and medical management. 2D echo results were also reviewed with the patient. Patient will need cardiac event monitoring as an outpatient. This was discussed. More than 50% of the time spent coordinating care, discussing management plans with involved caregivers. Management plans discussed with involved personnels. Medical decision making was of moderate to high complexity, patient's has multiple comorbidities. Medications reviewed and adjusted accordingly: Yes
[2017-11-08] MEDS: LANSOPRAZOLE 30 MG TAB.RAP.DR PO SCH (05:36)
[2017-11-08] MEDS: GABAPENTIN 300 MG CAPSULE PO SCH (05:36)
--- NOTE | 2017-11-08 05:52 | PDOC PROGRESS REPORT ---
Subjective Progress Note for:: 11/07/17 Subjective:: The patient is seen following her stress test. She tells me that she was having chest pain before and then during the stress test. She stated that she didn't want to tell anyone, because she wanted to have the test completed. Reason For Visit: CHEST PAIN Physical Exam Vital Signs: Temp Pulse Resp BP Pulse Ox 97.8 F 96 18 145/92 H 99 11/08/17 00:22 11/08/17 02:00 11/08/17 00:22 11/08/17 00:22 11/08/17 00:22 Intake & Output 11/06/17 11/07/17 11/08/17 06:59 06:59 06:59 Intake Total 742 775 Balance 742 775 Weight 116 kg General appearance: PRESENT: no acute distress, cooperative Respiratory exam: PRESENT: other - No increased work of breathing.. ABSENT: rales, rhonchi, wheezes Cardiovascular exam: PRESENT: RRR. ABSENT: gallop, rubs, systolic murmur Pulses: PRESENT: normal dorsalis pedis pul GI/Abdominal exam: PRESENT: normal bowel sounds, soft. ABSENT: hernia, mass, organolmegaly, tenderness Extremities exam: ABSENT: clubbing, pedal edema, tenderness Musculoskeletal exam: PRESENT: normal inspection. ABSENT: dislocation, tenderness Neurological exam: PRESENT: alert, awake, oriented to person, oriented to place , oriented to time, oriented to situation, CN II-XII grossly intact. ABSENT: motor sensory deficit Skin exam: PRESENT: dry, intact, warm Results Laboratory Results: 11/07/17 04:40 Phosphorus 4.4 Magnesium 2.1 11/06/17 11/06/17 11/06/17 04:40 11:00 17:07 Troponin I < 0.012 < 0.012 < 0.012 Impressions: Chest X-Ray 11/05/17 16:00 IMPRESSION: NO ACUTE RADIOGRAPHIC FINDING IN THE CHEST. Abdomen/Pelvis CTA 11/05/17 18:51 IMPRESSION: NO ABDOMINAL AORTIC ANEURYSM, DISSECTION OR SIGNIFICANT STENOSIS. NO SIGNIFICANT FINDINGS IN THE ABDOMEN. Chest/Abdomen CTA 11/05/17 18:51 IMPRESSION: No evidence of pulmonary emboli. Normal aorta. Stable right pulmonary nodule. Assessment & Plan - Diagnosis (1) Abnormal EKG Is this a current diagnosis for this admission?: Yes Plan: As per cardiology. (2) Syncope Qualifiers: Syncope type: unspecified Qualified Code(s): R55 - Syncope and collapse Is this a current diagnosis for this admission?: Yes Plan: Echocardiogram, cardiology consult, and stress test. CARLOS. (3) Chest pain Qualifiers: Chest pain type: unspecified Qualified Code(s): R07.9 - Chest pain, unspecified Is this a current diagnosis for this admission?: Yes Plan: Chest pain before and during stress test today. The patient requested medication for pain after returning from study. She did not report pain to anyone before or during her test. (4) Hypertension Qualifiers: Hypertension type: unspecified Qualified Code(s): I10 - Essential (primary ) hypertension Is this a current diagnosis for this admission?: Yes - Time Time Spent with patient: 25-34 minutes - Plan Summary Plan Summary: I await the results of the patient's stress test. If it is negative the patient will be discharged to home. I have explained to the patient what the stress test is meant to evaluate and how that differs from a left heart catheterization. We have also spoken about how there are many potential causes of chest pain and that the point of her admission is to make sure that the cause is not dangerous.
[2017-11-08] MEDS: LISINOPRIL 10 MG TABLET PO SCH (09:31)
[2017-11-08] MEDS: HYDROCHLOROTHIAZIDE 25 MG TABLET PO SCH (09:32)
[2017-11-08] MEDS: ENOXAPARIN SODIUM INJ 40 MG/0.4 ML DISP.SYRIN SUBCUT SCH (09:34)
[2017-11-08] MEDS ORDERED: METOPROLOL SUCCINATE 25 MG TAB.SR.24H PO SCH (10:00)
[2017-11-08 12:44] VITALS: BP 144/71
--- NOTE | 2017-11-08 16:34 | PDOC DISCHARGE SUMMARY ---
General - Admit/Disc Date/PCP Admission Date/Primary Care Provider: 11/05/17 22:17 GABRIELEJUN SARAVIA Discharge Date: 11/08/17 - Discharge Diagnosis (1) Abnormal EKG Is this a current diagnosis for this admission?: Yes (2) Syncope Is this a current diagnosis for this admission?: Yes (3) Chest pain Is this a current diagnosis for this admission?: Yes (4) Hypertension Is this a current diagnosis for this admission?: Yes - Additional Information Resuscitation Status: Full Code Discharge Diet: As Tolerated, Other (Comments) Discharge Activity: Activity As Tolerated, No Driving Prescriptions: Atorvastatin Calcium [Lipitor 40 mg Tablet] 40 mg PO QHS #30 tablet Metoprolol Succinate 50 mg PO DAILY #30 tab.er.24h Home Medications: Gabapentin [Neurontin 300 mg Capsule] 600 mg PO Q8 11/06/17 Lisinopril/Hydrochlorothiazide [Lisinopril-Hctz 20-25 mg Tab] 1 each PO DAILY Melatonin 20 mg PO QHS 11/06/17 Trazodone HCl [Desyrel] 300 mg PO QHS 11/06/17 Venlafaxine HCl ER [Effexor Xr 37.5 mg Cap.sr] 37.5 mg PO HSP PRN 11/06/17 Atorvastatin Calcium [Lipitor 40 mg Tablet] 40 mg PO QHS #30 tablet 11/08/17 Metoprolol Succinate 50 mg PO DAILY #30 tab.er.24h 11/08/17 History of Present Illness History of Present Illness: NIMO OLIVARES is a 52 year old female. Patient tells me that last Saturday a week ago she was vacuuming and started with chest pain and shortness of breath, she fell she passed out, she called 911 and was brought to the emergency department where blood work and EKG was done and she was sent home with appointment with her PCP. 2 days ago she had the appointment with her PCP she was found with increased blood pressure and she was asked to take her blood pressure medication and was scheduled for a stress test. Yesterday around 2 PM she was watching TV and she started with retrosternal chest pain radiated to her left breast, left upper extremity, sharp and stabbing radiated also to the back. In the emergency department when she was walking to [place] started being dizzy, chest tightness like passing out. Associated with shortness of breath, nausea, denies vomiting, diaphoresis, tells me that she has a black dot on her right eye since yesterday. The episode today has been constant and is still persistent when he went to see her in the ED. Nitroglycerin sublingual did not help but when nitroglycerin patch and morphine IV was given her pain went down from 9/10 in intensity to 5/10 in intensity. She has been having similar symptoms for the last 2 weeks but in less intensity. Never had a stress test in the past. Initial blood pressure 200/119. EKG normal sinus with arrhythmia, ventricular rate 107. First set of troponins negative. [facility] - Hospital Course Hospital Course: The patient was admitted to an observation bed. She was ruled out for an MA by EKG and enzyme criteria. A nuclear medicine stress was ordered for her, however , when they came to collect her for the test, the patient told them that she was having chest pain. The test was delayed as this chest pain was accompanied by EKG changes. Dr. Vásquez delayed the stress test until the next day. The patient. Also underwent an echocardiogram which was found to be uremarkable. Her stress test is also negative for ischemia. I melinda discussed the patient with Dr. Vásquez. he agrees that the patient is appropriate for discharge to home. She will follow up with Dr. Vásquez as outpatient. Physical Exam Vital Signs: Temp Pulse Resp BP Pulse Ox 97.8 F 89 18 144/71 H 99 11/08/17 12:42 11/08/17 12:42 11/08/17 12:42 11/08/17 12:42 11/08/17 12:42 Intake & Output 11/07/17 11/08/17 11/09/17 06:59 06:59 06:59 Intake Total 742 775 Balance 742 775 Weight 116 kg 116 kg General appearance: PRESENT: no acute distress Respiratory exam: PRESENT: other - No increaed work of breathing. No wheezes, rales, or rhonchi. No tactile fremitus. Cardiovascular exam: PRESENT: RRR, other - No lateral PMI. No thrills.. ABSENT : gallop, rubs, systolic murmur GI/Abdominal exam: PRESENT: normal bowel sounds, soft. ABSENT: distended, hernia, mass, organolmegaly, tenderness Extremities exam: ABSENT: joint swelling, pedal edema, tenderness Musculoskeletal exam: PRESENT: normal inspection. ABSENT: deformity, dislocation Neurological exam: PRESENT: alert, awake, oriented to person, oriented to place , oriented to time, oriented to situation, CN II-XII grossly intact. ABSENT: motor sensory deficit Psychiatric exam: PRESENT: appropriate affect, normal mood Skin exam: PRESENT: dry, intact, warm Results Laboratory Results: 11/06/17 11/06/17 11/06/17 04:40 11:00 17:07 Troponin I < 0.012 < 0.012 < 0.012 Impressions: Chest X-Ray 11/05/17 16:00 IMPRESSION: NO ACUTE RADIOGRAPHIC FINDING IN THE CHEST. Abdomen/Pelvis CTA 11/05/17 18:51 IMPRESSION: NO ABDOMINAL AORTIC ANEURYSM, DISSECTION OR SIGNIFICANT STENOSIS. NO SIGNIFICANT FINDINGS IN THE ABDOMEN. Chest/Abdomen CTA 11/05/17 18:51 IMPRESSION: No evidence of pulmonary emboli. Normal aorta. Stable right pulmonary nodule. Qualifiers - * PATIENT BEING DISCHARGED WITH ANY OF THE FOLLOWING DIAGNOSIS: No
--- NOTE | 2017-11-08 22:48 | PDOC PROGRESS REPORT ---
Subjective Progress Note for:: 11/08/17 Subjective:: Patient seen in the morning. Patient complained of very transient sharp pain which is felt to be noncardiac and was explained to the patient. Patient was offered follow-up. Patient seems to be doing better. Patient denying any PND, orthopnea. Patient denied any sustained palpitations, dizziness, syncope, near syncope. Patient denying any fever chills. Patient denying any other significant discomfort. Patient is maintaining sinus rhythm. Review of systems: Rest review of systems negative. Medications: Medications have been reviewed. Reason For Visit: CHEST PAIN Physical Exam Vital Signs: Temp Pulse Resp BP Pulse Ox 97.8 F 89 18 144/71 H 99 11/08/17 12:42 11/08/17 12:42 11/08/17 12:42 11/08/17 12:42 11/08/17 12:42 Intake & Output 11/07/17 11/08/17 11/09/17 06:59 06:59 06:59 Intake Total 742 775 Balance 742 775 Weight 116 kg 116 kg Exam: GENERAL: well-nourished and in no acute distress. Alert and oriented x3 HEAD: Atraumatic, normocephalic. EYES: Pupils equal round and reactive to light, extraocular movements intact, sclera anicteric, conjunctiva are normal. ENT: TMs normal, nares patent, oropharynx clear without exudates. Moist mucous membranes. No oral ulcerations or bleeding gums noted NECK: supple without lymphadenopathy. Trachea is central. No cervical or axillary lymphadenopathy noted. Carotids are 2+, JVD WNL LUNGS: Respiration seems nonlabored, no significant accessory muscle action noted. Breath sounds clear to auscultation bilaterally and equal noted. No wheezes rales or rhonchi noted. No significant dullness noted on percussion. CHEST: Palpation of the chest wall shows no significant chest wall tenderness. 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 ABDOMEN: Soft, no significant tenderness appreciated, normoactive bowel sounds. No guarding, no rebound. No rigidity noted . No masses appreciated. EXTREMITIES: Pedal pulses are 1-2+, no calf tenderness noted. No clubbing or cyanosis. negative pedal edema noted NEUROLOGICAL: Focused neurological exam showed no significant neurologic deficit. Normal speech, no focal weakness appreciated. PSYCH: Normal mood, normal affect. Judgment and insight within normal limits. SKIN: No significant ecchymosis, skin is noted to be warm. MUSCULOSKELETAL EXAM: No significant acute joint swelling noted. Results Laboratory Results: 11/06/17 11/06/17 11/06/17 04:40 11:00 17:07 Troponin I < 0.012 < 0.012 < 0.012 EKG Comments: Showed sinus rhythm without any sustained tachycardia or bradycardia Impressions: Chest X-Ray 11/05/17 16:00 IMPRESSION: NO ACUTE RADIOGRAPHIC FINDING IN THE CHEST. Abdomen/Pelvis CTA 11/05/17 18:51 IMPRESSION: NO ABDOMINAL AORTIC ANEURYSM, DISSECTION OR SIGNIFICANT STENOSIS. NO SIGNIFICANT FINDINGS IN THE ABDOMEN. Chest/Abdomen CTA 11/05/17 18:51 IMPRESSION: No evidence of pulmonary emboli. Normal aorta. Stable right pulmonary nodule. Assessment & Plan - Diagnosis (1) Chest pain Qualifiers: Chest pain type: unspecified Qualified Code(s): R07.9 - Chest pain, unspecified Is this a current diagnosis for this admission?: Yes (2) Obesity Qualifiers: Obesity type: unspecified obesity type Obesity classification: unspecified obesity classification Is this a current diagnosis for this admission?: Yes (3) Abnormal EKG Is this a current diagnosis for this admission?: Yes (4) Hypertension Qualifiers: Hypertension type: unspecified Qualified Code(s): I10 - Essential (primary ) hypertension Is this a current diagnosis for this admission?: Yes (5) Syncope Qualifiers: Syncope type: unspecified Qualified Code(s): R55 - Syncope and collapse Is this a current diagnosis for this admission?: Yes (6) Hyperlipidemia Qualifiers: Hyperlipidemia type: unspecified Qualified Code(s): E78.5 - Hyperlipidemia , unspecified Is this a current diagnosis for this admission?: Yes - Notes Notes: Nuclear stress test results were discussed again in detail. 2D echo results were also discussed. Chest pain: This was evaluated with a nuclear stress test which was noted to be relatively unremarkable. Breast attenuation artifacts are noted. At this point will recommend medical management with aggressive risk factor modification , weight loss etc. patient to be started on statin therapy. Lipitor 40 mg p.o. nightly ordered. Obesity: Patient will benefit from weight loss. I will be happy to help patient in this regard as an outpatient. Abnormal EKG: This was evaluated by 2D echo and nuclear stress test and both were noted to be relatively unremarkable. Patient will benefit from regular walking program and weight loss. Hypertension: Blood pressure goal should be 135/85 or less in this relatively young lady. Syncope: Will recommend cardiac event monitor as an outpatient. This can be arranged through my office if indicated. Hyperlipidemia: LDL goal is less than 100. Recommend statin therapy. Atorvastatin started. Patient can follow-up with me if she wishes. - Time Time with patient: Greater than 35 minutes - More than 50% of the time spent coordinating care, discussing management plans with involved caregivers. Management plans discussed with involved personnels. Medical decision making was of moderate to high complexity, patient's has multiple comorbidities. Medications reviewed and adjusted accordingly: Yes
== END 2017-11-08 13:57 | disposition home or self-care (01) ==
LOC: ER 14:31 → EH 22:17 → 3N 11-06 09:58
PROVIDERS: ADMIT Internal Medicine; ATTEND Internal Medicine
DX: R94.31 Abnormal electrocardiogram [ECG] [EKG] (principal); R55 Syncope and collapse; R07.2 Precordial pain; I10 Essential (primary) hypertension; R06.02 Shortness of breath; R91.1 Solitary pulmonary nodule; R11.0 Nausea; R61 Generalized hyperhidrosis; I82.0 Budd-Chiari syndrome; R00.0 Tachycardia, unspecified; E78.5 Hyperlipidemia, unspecified; F17.290 Nicotine dependence, other tobacco product, uncomplicated; R53.1 Weakness; E66.01 Morbid (severe) obesity due to excess calories; F17.210 Nicotine dependence, cigarettes, uncomplicated; Z68.41 Body mass index [BMI] 40.0-44.9, adult; Z79.899 Other long term (current) drug therapy; Z98.890 Other specified postprocedural states; Z82.49 Family history of ischemic heart disease and other diseases of the circulatory system; Z82.3 Family history of stroke
CPT/HCPCS: 93005 ×2; 96376; 99285; 96374; 96375; 36415 ×3; 83735; 84100; 85025; 80053; 81001; 84484 ×2; 80307; 83036; 80061; 93306; 93017; 71045; 78452; 71275; 74174; 93010 ×2; G0378 ×4; A9500; J2785; A9270 ×18; J2270 ×3; J1650 ×3; J2405; Q9969; J3490

== ENCOUNTER 2019-10-09 10:52 | Emergency (ER) | payer MEDICARE, MEDICAID ==
--- NOTE | 2019-10-09 11:28 | ER Document Report ---
ED Medical Screen (RME) - General Chief Complaint: Shortness Of Breath Stated Complaint: SHORT OF BREATH Time Seen by Provider: 10/09/19 11:28 Primary Care Provider: GABRIELE MUHAMMAD FNP [Primary Care Provider] - Follow up as needed TRAVEL OUTSIDE OF THE [place] IN LAST 30 DAYS: No - HPI Notes: 10/09/19 11:56 54-year-old female presents to the ED tomorrow for shortness of breath at rest and walking with nausea that started about a week ago. Patient was seen by [facility], she did have a negative coag test which came back today. Her doctor did prescribe her Mucinex, and inhaler and a Z-Severo without any relief. Patient called EMS last night for shortness of breath but they did not bring her because she did not meet the "COVID criteria" per patient. Denies any chest pain, reports nausea but denies any vomiting, diarrhea, abdominal pain. Patient denies any asthma, has been a smoker about a pack a day for the last 30 years. Patient states that her shortness of breath is becoming worse. Reports chills denies fevers. I have greeted and performed a rapid initial assessment of this patient. A comprehensive ED assessment and evaluation of the patient, analysis of test results and completion of the medical decision making process will be conducted by additional ED providers. PHYSICAL EXAMINATION: GENERAL: Well-appearing, well-nourished and in no acute distress. NECK: Normal range of motion CV: s1, s2 regular LUNGS: No respiratory distress - Related Data Allergies/Adverse Reactions: codeine Allergy (Verified 11/05/17 15:57) oxycodone [Oxycodone] Adverse Reaction (Mild, Verified 11/05/17 14:32) Past Medical History - Past Medical History Cardiac Medical History: Reports: Hx Hypercholesterolemia, Hx Hypertension Neurological Medical History: Reports: Hx Seizures Renal/ Medical History: Denies: Hx Peritoneal Dialysis Psychiatric Medical History: Reports: Hx Depression Past Surgical History: Reports: Hx Hysterectomy, Hx Neurologic Surgery - Decompression of Chiari 1 malformation, Hx Orthopedic Surgery - right arthroscopy, Other - Back surgery in 2016 L4, L5, S1 - Immunizations Hx Diphtheria, Pertussis, Tetanus Vaccination: No Doctor's Discharge - Discharge Referrals: GABRIELE MUHAMMAD FNP [Primary Care Provider] - Follow up as needed
[2019-10-09] MEDS ORDERED: ONDANSETRON 4 MG TAB.RAPDIS PO ONE (11:29)
--- NOTE | 2019-10-09 13:34 | RADIOLOGY REPORT (SQ) ---
EXAM DESCRIPTION: CHEST SINGLE VIEW IMAGES COMPLETED DATE/TIME: 10/09/2019 1:22 pm REASON FOR STUDY: sob COMPARISON: 11/05/2017 EXAM PARAMETERS: NUMBER OF VIEWS: One view. TECHNIQUE: Single frontal radiographic view of the chest acquired. RADIATION DOSE: NA LIMITATIONS: None. FINDINGS: LUNGS AND PLEURA: No opacities, masses or pneumothorax. No pleural effusion. MEDIASTINUM AND HILAR STRUCTURES: No masses. Contour normal. HEART AND VASCULAR STRUCTURES: Heart normal in size. Normal vasculature. BONES: No acute findings. HARDWARE: None in the chest. OTHER: No other significant finding. IMPRESSION: NO ACUTE RADIOGRAPHIC FINDING IN THE CHEST. TECHNICAL DOCUMENTATION: JOB ID: [id number] 2010 [employer]- All Rights Reserved Reading location - IP/workstation name: [email or web address]
[2019-10-09] MEDS ORDERED: IPRATROPIUM/ALBUTEROL 0.5-2.5 MG/3 ML AMPUL NEB ONE (13:54)
--- NOTE | 2019-10-09 13:55 | ER Document Report ---
ED Respiratory Problem - General Chief Complaint: Back Pain Stated Complaint: SHORT OF BREATH Time Seen by Provider: 10/09/19 11:28 Primary Care Provider: GABRIELE MUHAMMAD FNP [Primary Care Provider] - Follow up as needed Mode of Arrival: Ambulatory Information source: Patient Notes: 54-year-old female past medical history significant for hypertension, hyperlipidemia, chronic pain, Chiari malformation presents to the emergency room complaining of worsening shortness of breath with exertion for the past week. Also states she is got a headache and nausea states her shortness of breath is worse when she lays flat. Denies any fever but has felt clammy. States she saw her primary care physician 2 days ago who prescribed her with a Z-Severo, Mucinex and an inhaler which she states is not helping. She did get tested for COVID-19 she received a negative test result today. Dates her primary care physician called to check on her today she told him she was not feeling any better and they referred her to the emergency room. She denies any chest pain. Denies any recent travel. Denies any COVID-19 exposure. No cardiac history. TRAVEL OUTSIDE OF THE [place] IN LAST 30 DAYS: No - Related Data Allergies/Adverse Reactions: codeine Allergy (Verified 11/05/17 15:57) oxycodone [Oxycodone] Adverse Reaction (Mild, Verified 11/05/17 14:32) Home Medications: aspirin, atorvastatin, flexril, diclofenac, gabapentin, lamotrigine, lisinopril-hctz, metorprolol, protonix, effexor Past Medical History - General Information source: Patient - Social History Smoking Status: Current Every Day Smoker Chew tobacco use (# tins/day): No Frequency of alcohol use: None Drug Abuse: Marijuana Family History: CAD, Hypertension - Past Medical History Cardiac Medical History: Reports: Hx Hypercholesterolemia, Hx Hypertension Neurological Medical History: Reports: Hx Seizures Renal/ Medical History: Denies: Hx Peritoneal Dialysis Psychiatric Medical History: Reports: Hx Depression Past Surgical History: Reports: Hx Hysterectomy, Hx Neurologic Surgery - Decompression of Chiari 1 malformation, Hx Orthopedic Surgery - right arthrosco py, Other - Back surgery in 2016 L4, L5, S1 - Immunizations Hx Diphtheria, Pertussis, Tetanus Vaccination: No Review of Systems - Review of Systems Constitutional: Malaise EENT: No symptoms reported Cardiovascular: No symptoms reported Respiratory: Short of breath. denies: Cough Musculoskeletal: No symptoms reported Skin: No symptoms reported Neurological/Psychological: No symptoms reported -: Yes All other systems reviewed and negative Physical Exam - Vital signs Vitals: Temp Pulse Resp BP Pulse Ox 98.7 F 79 18 134/81 H 97 10/09/19 13:10 10/09/19 13:10 10/09/19 13:10 10/09/19 13:10 10/09/19 13:10 - General General appearance: Appears well, Alert In distress: Mild - HEENT Head: Normocephalic, Atraumatic Eyes: Normal Pupils: PERRL External canal: Normal Tympanic membrane: Normal Sinus: Normal Nasal: Normal Pharynx: Normal Neck: Normal - Respiratory Respiratory status: No respiratory distress Chest status: Nontender Breath sounds: Wheezing - Expiratory Chest palpation: Normal - Cardiovascular Rhythm: Regular Heart sounds: Normal auscultation Murmur: No - Back Back: Normal, Nontender - Neurological Neuro grossly intact: Yes Cognition: Normal Orientation: AAOx4 [place] Coma Scale Eye Opening: Spontaneous Trisha Coma Scale Verbal: Oriented Trisha Coma Scale Motor: Obeys Commands Trisha Coma Scale Total: 15 Speech: Normal Motor strength normal: LUE, RUE, LLE, RLE Sensory: Normal - Skin Skin Temperature: Warm Skin Moisture: Dry Skin Color: Normal Course - Re-evaluation Re-evalutation: 10/09/19 14:15 Patient presenting with worsening shortness of breath with exertion for the past week. Labs, chest x-ray, cardiac evaluation. Family history significant for mother with an OR in her 50s. HEART Score: History 0 ECG 0 Age 1 Risk Factors 2 Troponin 0 Total: 3 If HEART score is = 3 AND both tronponin measurments are normal, the 30 day risk of a major adverse cardiac event (all-cause mortality, myocardia infarction or need for coronary revscularization) is < 1% (Sensitivity 100%, NPV 100%). Chest pain in a patient without evidence of cardiac or other serious etiology on workup today. I discussed with patient that, based on their age, risk factors and emergency department testing today, the likelihood that their symptoms are related to a heart attack is very low (estimated risk of heart attack or over the next 30 days of less than 1%). The patient demonstrates decision making capacity and has verbalized an understanding of these risks to me. Based on this, the patient has chosen to follow-up as an outpatient. Usual chest pain return precautions reviewed. The patient states understanding and agreement with this plan. 10/09/19 15:46 10/09/19 15:56 Patient is resting comfortably wheezing has resolved. Reviewed all lab findings and x-ray results with patient. Patient states she is feeling less short of br eath after receiving the nebulizer treatment. Will add p.o. prednisone. Patient aware on need for repeat troponin at 1710. Will reevaluate after final labs resulted. 10/09/19 18:17 Patient continues to be resting comfortably. All test results reviewed with patient. Vital signs are stable. Counseled patient to continue the current medications that she was prescribed by her primary care physician 2 days ago. Start the Medrol Dosepak tomorrow as prescribed. Patient was given strict return to the emergency room guidelines. Return for any new or worsening symptoms. All questions were answered. Patient verbalized understanding and agrees with plan of care. 10/09/19 18:21 - Vital Signs Vital signs: Temp Pulse Resp BP Pulse Ox 98.7 F 79 16 114/71 94 10/09/19 13:28 10/09/19 13:10 10/09/19 16:00 10/09/19 15:56 10/09/19 16:00 - Laboratory Result Diagrams: 10/09/19 14:10 10/09/19 14:10 Laboratory results interpreted by me: 10/09/19 10/09/19 10/09/19 14:10 14:10 14:10 MCV 98 H RDW 14.4 H Carbon Dioxide 33 H Magnesium 2.4 H - EKG Interpretation by Md EKG shows normal: Sinus rhythm Rate: Normal Additional EKG results interpreted by me: 10/09/19 14:19 EKG was interpreted by ED physician Dr. Lubin Sinus rhythm Acute STEMI Rate of 79 No T wave abnormalities. Discharge - Discharge Clinical Impression: Dyspnea Qualifiers: Dyspnea type: dyspnea on exertion Qualified Code(s): R06.00 - Dyspnea, unspecified Asthmatic bronchitis Qualifiers: Asthma severity: mild Asthma persistence: intermittent Asthma complication type : uncomplicated Qualified Code(s): J45.20 - Mild intermittent asthma, uncomplicated Condition: Stable Disposition: HOME, SELF-CARE Additional Instructions: Continue medications as prescribed by your primary care physician. Take the prednisone as prescribed starting tomorrow. Follow-up with your primary care physician if not improving in 2 to 3 days. Return to the emergency room for any new or worsening symptoms. Prescriptions: Methylprednisolone [Medrol Dosepack (4 mg/Tab) 21 Tab/Dosepak] 4 mg PO ASDIR PRN #21 [id number] PRN Reason: Referrals: GABRIELE MUHAMMAD FNP [Primary Care Provider] - Follow up as needed
[2019-10-09 14:33] LABS: ABSOLUTE BASOPHILS # (AUTO) 0.1 10^3/uL (0.0-0.2); ABSOLUTE LYMPHOCYTES (AUTO) 1.9 10^3/uL (0.5-4.7); ABSOLUTE MONOCYTES (AUTO) 0.5 10^3/uL (0.1-1.4); BASOPHILS % (AUTO) 0.8 % (0-2); EOSINOPHILS % (AUTO) 0.1 % (0-6); HEMATOCRIT 45.3 % (36.0-47.0); HEMOGLOBIN 15.2 g/dL (12.0-15.5); LYMPHOCYTES % (AUTO) 22.3 % (13-45); MEAN CORPUSCULAR HEMOGLOBIN 32.8 pg (27.0-33.4); MEAN CORPUSCULAR HGB CONC 33.5 g/dL (32.0-36.0); MEAN CORPUSCULAR VOLUME 98 fl (80-97); MONOCYTES % (AUTO) 6.3 % (3-13); PLATELET COUNT 223 10^3/uL (150-450); RED BLOOD COUNT 4.63 10^6/uL (3.72-5.28); RED CELL DISTRIBUTION WIDTH 14.4 % (11.5-14.0); SEGMENTED NEUTROPHILS % (AUTO) 70.5 % (42-78); TOTAL CELLS COUNTED % (AUTO) 100 %; WHITE BLOOD COUNT 8.5 10^3/uL (4.0-10.5)
[2019-10-09 14:53] LABS: ALBUMIN 4.3 g/dL (3.5-5.0); ALKALINE PHOSPHATASE 86 U/L (38-126); ANION GAP 5 (5-19); ASPARTATE AMINO TRANSFERASE 22 U/L (14-36); BILIRUBIN,TOTAL 0.3 mg/dL (0.2-1.3); BLOOD UREA NITROGEN 15 mg/dL (7-20); CALCIUM 9.5 mg/dL (8.4-10.2); CARBON DIOXIDE 33 mmol/L (22-30); CHLORIDE 100 mmol/L (98-107); GLUCOSE 90 mg/dL (75-110); POTASSIUM 4.3 mmol/L (3.6-5.0); TOTAL PROTEIN 7.1 g/dL (6.3-8.2)
[2019-10-09 15:07] LABS: CREATINE KINASE MB 0.37 ng/mL (<4.55); NT PRO BNP 42 pg/mL (<125)
--- NOTE | 2019-10-09 15:09 | EKG REPORT ---
SEVERITY:- NORMAL ECG - SINUS RHYTHM : Confirmed by: Toni Stewart MD 09-Oct-2019 15:08:37
[2019-10-09 15:10] LABS: TROPONIN I < 0.012 ng/mL
[2019-10-09] MEDS ORDERED: PREDNISONE 20 MG TABLET PO ONE (15:56)
[2019-10-09 18:50] VITALS: BP 132/74
== END 2019-10-09 18:53 | disposition home or self-care (01) ==
LOC: ER 10:52
DX: J45.20 Mild intermittent asthma, uncomplicated (principal); I10 Essential (primary) hypertension; R51 Headache; R11.0 Nausea; F17.200 Nicotine dependence, unspecified, uncomplicated; F12.10 Cannabis abuse, uncomplicated; G89.29 Other chronic pain; E78.00 Pure hypercholesterolemia, unspecified; E78.5 Hyperlipidemia, unspecified; F32.9 Major depressive disorder, single episode, unspecified; R56.9 Unspecified convulsions; Z79.82 Long term (current) use of aspirin; Z79.899 Other long term (current) drug therapy; Z79.1 Long term (current) use of non-steroidal anti-inflammatories (NSAID); Z88.6 Allergy status to analgesic agent; Z88.5 Allergy status to narcotic agent; Z82.49 Family history of ischemic heart disease and other diseases of the circulatory system
CPT/HCPCS: 93005; 94640; 99284; 36415; 82553; 82550; 83735; 85025; 80053; 84484; 83880; 71045; 93010; A9270 ×2; J7512; S0119